=== PATIENT | female | born 1990 | race Caucasian/White ===

== ENCOUNTER 2019-12-23 15:11 | Observation (INO) ==
--- OUTSIDE RECORDS SUMMARY | 2019-12-23 15:14 | External Medical Summary | Continuity of Care Document ---
:1990 Author Name Vita Morrow, Provider Address Unavailable Unavailable , Care Team Providers Name Role Phone Efrem Morrow, [email or web address] [place] Stacey MOLINA JR Unavailable Unavailable Unavailable Unavailable Unavailable Problems Cholecystitis (575.10) (K81.9) Allergies and Adverse Reactions No Known Allergies (Allergy) Medications Omeprazole 20 MG Oral Tablet Delayed Release Refills: 0 Procedures Procedures not documented Immunizations Immunizations not documented Social History - Smoking Status Smoker. current status unknown Plan of Treatment Planned Observations Planned Goals not documented Results No Known Results Results not documented
--- OUTSIDE RECORDS SUMMARY | 2019-12-23 15:14 | External Medical Summary | Continuity of Care Document ---
:1990 Author Name Vita Morrow, Provider Address Unavailable Unavailable , Care Team Providers Name Role Phone Efrem Morrow, [email or web address] [place] Stacey MOLINA JR Unavailable Unavailable Unavailable Unavailable [...]
[2019-12-23] MEDS ORDERED: SODIUM CHLORIDE 0.9% 1000ML 1,000 ML IV ONE (15:24)
[2019-12-23] MEDS ORDERED: ACETAMINOPHEN 1,000 MG/100 ML VIAL IV STA (15:38)
[2019-12-23] MEDS ORDERED: ONDANSETRON INJ 2 MG/ML 2 ML VIAL IV STA (15:48)
--- NOTE | 2019-12-23 15:57 | Emergency Department Note ---
History of Present Illness General Chief Complaint: Abdominal Pain Stated Complaint: fever, cramping in lower r abd Source: patient Mode of arrival: ambulatory Limitations: no limitations History of Present Illness Provider Complaint: abdominal pain Onset (ago): greater than 10 hour(s) Pain Consistency: constant Location: periumbilical Radiation: RLQ Migration to: RLQ Severity: severe Maximum Pain Intensity: 10 Current Pain Intensity: 10 Quality: + cramping, + fullness and + sharp Relieved By: + nothing Exacerbated By: + movement Context: no foreign travel, no possible food poisoning, no recent antibiotic use and no history of similar episodes Associated Symptoms: + nausea, + chills and + anorexia; no vomiting, no diarrhea and no constipation Treatments prior to arrival: none This 29-year-old female patient presents the emergency department today, ambulatory, complaining of right lower quadrant abdominal pain which began at approximately 3 AM. The pain woke her from sleep. She describes the pain as sharp and cramping and has been progressively worsening throughout the day. She states it began in the middle of her abdomen and radiates to the right lower quadrant. She does report a decreased appetite. She states approximate 1 hour prior to arrival she developed a fever of 100.4 F. She has taken no medications for her symptoms. Last menstrual period began on 12/20 and is current. The patient states her last bowel movement was this morning. She does report nausea, but no vomiting. She states she has the sensation of constipation, but did move her bowels this morning. She has been unable to tolerate any foods today. Related Data Date of Last Menstrual Period: 12/20/19 Home Medications Home Medications Medication Instructions Recorded Confirmed Type No Known Home Medications 12/23/19 12/23/19 History Allergies Allergy/AdvReac Type Severity Reaction Status Date / Time No Known Allergies Allergy Verified 12/23/19 17:51 Past Med/Surg History Medical History No pertinent past medical history Surgical History Hx of cholecystectomy Social History Feels Safe at Home: Yes Smoking Status: Never smoker Review of Systems A total of 10 systems reviewed and were otherwise negative Physical Exam Vital Signs: Vital Signs - 24 hr 12/23/19 15:13 12/23/19 15:23 12/23/19 17:11 Temperature 38 C H Temperature Source Oral Pulse Rate 124 H Pulse Rate [Apical ] 101 H Respiratory Rate 18 20 Respiratory Effort / Characteristics Non-Labored Respiratory Depth Normal Blood Pressure 142/83 H Blood Pressure [Le ft Arm] 136/66 Blood Pressure Dee n 102 Blood Pressure Dee n [Left Arm] 89 Pulse Oximetry 95 98 97 Oxygen Delivery Me thod Room Air Room Air Sepsis Recent Feve r Within 48 Hours No Sepsis New/Unexpla ined Change in Men nicol Status No Sepsis Action Take n by Nursing No Action Required 12/23/19 19:08 12/23/19 20:19 Temperature Temperature Source Pulse Rate 88 Pulse Rate [Apical ] 91 H Respiratory Rate 20 18 Respiratory Effort / Characteristics Respiratory Depth Blood Pressure 144/89 H Blood Pressure [Le ft Arm] 139/78 Blood Pressure Dee n Blood Pressure Dee n [Left Arm] 98 Pulse Oximetry 98 98 Oxygen Delivery Me thod Sepsis Recent Feve r Within 48 Hours Sepsis New/Unexpla ined Change in Men nicol Status Sepsis Action Take n by Nursing Physical Exam: VITALS: Vitals are noted on the nurse's note and reviewed by myself. Patient is febrile and tachycardic. She is not hypotensive. GENERAL: This is a 29-year-old obese white female, in no acute distress, nondiaphoretic, well-developed well-nourished. SKIN: The skin was without rashes, erythema, edema, or bruising. There is no te nting of the skin. Capillary refill less than 2 seconds. HEAD: Normocephalic atraumatic. EARS: External auditory canals clear, tympanic membranes pearly khoury without erythema or effusion bilaterally. EYES: Pupils equal round and reactive to light and accommodation. Conjunctivae without injection, sclerae without icterus. NOSE: Patent, turbinates without inflammation or discharge. No sinus ten derness. MOUTH: Mucous membranes moist. Tonsils are not enlarged. Pharynx without erythema or exudate. Uvula midline. Airway patent. Tongue does not deviate. NECK: Supple without nuchal rigidity. No lymphadenopathy. HEART: Regular rate and rhythm without murmurs gallops or rubs. LUNGS: Clear to auscultation bilaterally without wheezes, rales or rhonchi. No dullness to percussion. No retractions or accessory muscle use. ABDOMEN: Positive bowel sounds x 4. Normal tympanic percussion. Diffuse tenderness without masses or organomegaly. Positive guarding and rebound tenderness. Referred tenderness with palpation of the left. + Tenderness over Mcburney's point. MUSCULOSKELETAL: No muscle atrophy, erythema, or edema noted. Full range of motion without joint tenderness in all extremities. No tenderness to palpation. Normal gait. NEURO: Patient was alert and oriented to person place and time. No focal neurological deficits. Course Course The patient was seen and evaluated as above. IV access obtained, labs drawn. Pt. offered analgesics and declined. She was medicated with IV Tylenol, NSS, and zofran. Imaging performed and reviewed by myself and radiologist as above. Labs reviewed by myself. I discussed the findings with the patient at bedside. She was given IV Morphine for pain. I discussed the case with Dr. Lester. He agreed to see and evaluate the patient. Please see his dictation regarding ongoing management and care of this patient. Administered Medications Discontinued Medications Bacitracin (Bacitracin) Confirm Administered Dose 45 appln .ROUTE .STK-MED ONE Stop: 12/23/19 19:59 Last Admin: 12/23/19 21:26 Dose: 1 appln Documented by: [id number] Bupivacaine HCl (Marcaine 0.5% Mpf) Confirm Administered Dose 30 ml .ROUTE .STK- MED ONE Stop: 12/23/19 19:59 Last Admin: 12/23/19 21:27 Dose: 9 ml Documented by: [id number] Sodium Chloride (Nss 1000ml) 1,000 mls @ 999 mls/hr IV .Q1H1M ONE Stop: 12/23/19 16:24 Last Infusion: 12/23/19 18:22 Dose: 0 mls/hr Documented by: [id number] Admin: 12/23/19 16:52 Dose: 999 mls/hr Documented by: [id number] Acetaminophen (Ofirmev) 1,000 mg in 100 mls @ 400 mls/hr IV NOW STA Stop: 12/23/19 15:52 Last Infusion: 12/23/19 17:38 Dose: 0 mls/hr Documented by: [id number] Admin: 12/23/19 16:51 Dose: 400 mls/hr Documented by: [id number] Cefoxitin Sodium (Mefoxin) 2,000 mg in 60 mls @ 100 mls/hr IV NOW STA Stop: 12/23/19 20:33 Last Admin: 12/23/19 20:58 Dose: 100 mls/hr Documented by: [id number] Ioversol (Optiray 320 100ml) 89 ml IV ONCE PRN PRN Reason: Interaction Checking Stop: 12/27/19 16:58 Last Admin: 12/23/19 17:00 Dose: 89 ml Documented by: [id number] Lidocaine HCl (Xylocaine 1% (Local)) Confirm Administered Dose 20 ml .ROUTE .Ivalua-MED ONE Stop: 12/23/19 19:59 Last Admin: 12/23/19 21:30 Dose: 9 ml Documented by: [id number] Morphine Sulfate (Morphine Sulfate) 4 mg IV NOW STA Stop: 12/23/19 17:35 Last Admin: 12/23/19 17:45 Dose: 4 mg Documented by: [id number] Ondansetron HCl (Zofran) 4 mg IV NOW STA Stop: 12/23/19 15:49 Last Admin: 12/23/19 16:51 Dose: 4 mg Documented by: [id number] Medical Decision Making Differential Diagnosis + peptic ulcer disease, + biliary pathology, + UTI, + obstruction, + mesenteric ischemia, + aortic pathology, + infections, + inflammatory bowel disease, + swati l colic, + ectopic (female), + ovarian torsion (female), + tubo- ovarian abscesses (female), + pelvic inflammatory disease (female), + abdominal pain, + appendicitis, + calculus of kidney, + constipation, + diverticulitis, + endometriosis, + gastroenteritis, + pancreatitis and + small bowel obstruction Home Medications Current Medication List: was personally reviewed by me Laboratory Data Attestation: I reviewed the patient's lab results. Leukocytosis of 18,000. No anemia or thrombocytopenia. Renal, hepatic function, and electrolytes without significant abnormality. Lactate 2.1. TSH, lipase without significant abnormalities. UA negative for infection. Hcg negative. Result diagrams: 12/23/19 15:42 12/23/19 15:42 Lab Results 12/23/19 12/23/19 12/23/19 Range/Units 15:31 15:31 15:42 WBC (4.8-10.8) K/uL RBC (4.2-5.4) M/uL Hgb (12.0-16.0) g/dL Hct (37-47) % MCV (80-100) fL MCH (25-34) pg MCHC (32-36) g/dL RDW Std Deviation (36.4-46.3) fL RDW Coeff of Guerline (11.5-14.5) % Plt Count (130-400) K/uL MPV (7.4-10.4) fL Immature Gran % (Auto) % Neut % (Auto) % Lymph % (Auto) % [place] % (Auto) % Eos % (Auto) % Baso % (Auto) % Immature Gran # (Auto) (0.00-0.02) K/uL Neut # (Auto) (1.4-6.5) K/uL Lymph # (Auto) (1.2-3.4) K/uL [place] # (Auto) (0.11-0.59) K/uL Eos # (Auto) (0-0.5) K/uL Baso # (Auto) (0-0.2) K/uL PT (9.0-12.0) Seconds INR (0.9-1.1) APTT (21.0-31.0) Seconds PTT Ratio Sodium (136-145) mmol/L Potassium (3.5-5.1) mmol/L Chloride (98-107) mmol/L Carbon Dioxide (21-32) mmol/L Anion Gap (3-11) BUN (7-18) mg/dl Creatinine (0.6-1.2) mg/dl POC Creatinine (0.6-1.3) mg/dl Est Cr Clr Drug Dosing ml/min Est GFR ( Amer) Est GFR (Non-Af Amer) BUN/Creatinine Ratio (10-20) Glucose (70-99) mg/dl Lactate 2.1 H* (0.4-2.0) mmol/L Calcium (8.5-10.1) mg/dl Total Bilirubin (0.2-1) mg/dl AST (15-37) U/L ALT (12-78) U/L Alkaline Phosphatase (45-117) U/L Total Protein (6.4-8.2) gm/dl Albumin (3.4-5.0) gm/dl Globulin (2.5-4.0) gm/dl Albumin/Globulin Ratio (0.9-2) Lipase (73-393) U/L TSH (0.300-4.500) uIu/ml Urine Color Yellow Urine Appearance Cloudy A (Clear) Urine pH 7.0 (4.5-7.5) Ur Specific [place] 1.011 (1.000-1.030) Urine Protein Negative (Negative) Urine Glucose (UA) Negative (Negative) Urine Ketones Negative (Negative) Urine Blood 3+ H (Negative) Urine Nitrite Negative (Negative) Urine Bilirubin Negative (Negative) Urine Urobilinogen Negative (Negative) Ur Leukocyte Esterase Trace H (Negative) Urine WBC (Auto) 5-10 H (0-5) /hpf Urine RBC (Auto) 5-10 H (0-4) /hpf U Hyaline Cast (Auto) 0 (0-5) /lpf U Epithel Cells (Auto) 20-30 H (0-5) /lpf Urine Bacteria (Auto) Negative (Negative) POC Ur Test NEG (NEG) 12/23/19 12/23/19 12/23/19 Range/Units 15:42 15:42 15:42 WBC 18.41 H (4.8-10.8) K/uL RBC 4.36 (4.2-5.4) M/uL Hgb 13.0 (12.0-16.0) g/dL Hct 36.7 L (37-47) % MCV 84.2 (80-100) fL MCH 29.8 (25-34) pg MCHC 35.4 (32-36) g/dL RDW Std Deviation 39.2 (36.4-46.3) fL RDW Coeff of Guerline 12.9 (11.5-14.5) % Plt Count 303 (130-400) K/uL MPV 8.9 (7.4-10.4) fL Immature Gran % (Auto) 0.3 % Neut % (Auto) 82.2 % Lymph % (Auto) 8.1 % Sibley % (Auto) 9.1 % Eos % (Auto) 0.1 % Baso % (Auto) 0.2 % Immature Gran # (Auto) 0.06 H (0.00-0.02) K/uL Neut # (Auto) 15.12 H (1.4-6.5) K/uL Lymph # (Auto) 1.50 (1.2-3.4) K/uL [place]y # (Auto) 1.67 H (0.11-0.59) K/uL Eos # (Auto) 0.02 (0-0.5) K/uL Baso # (Auto) 0.04 (0-0.2) K/uL PT 10.3 (9.0-12.0) Seconds INR 1.0 (0.9-1.1) APTT 25.8 (21.0-31.0) Seconds PTT Ratio 1.0 Sodium 134 L (136-145) mmol/L Potassium 3.4 L (3.5-5.1) mmol/L Chloride 101 (98-107) mmol/L Carbon Dioxide 24 (21-32) mmol/L Anion Gap 10.0 (3-11) BUN 10 (7-18) mg/dl Creatinine 0.80 (0.6-1.2) mg/dl POC Creatinine (0.6-1.3) mg/dl Est Cr Clr Drug Dosing 120.7 ml/min Est GFR ( Amer) 116.3 Est GFR (Non-Af Amer) 100.3 BUN/Creatinine Ratio 12.1 (10-20) Glucose 101 H (70-99) mg/dl Lactate (0.4-2.0) mmol/L Calcium 9.2 (8.5-10.1) mg/dl Total Bilirubin 0.6 (0.2-1) mg/dl AST 18 (15-37) U/L ALT 44 (12-78) U/L Alkaline Phosphatase 85 (45-117) U/L Total Protein 8.3 H (6.4-8.2) gm/dl Albumin 4.1 (3.4-5.0) gm/dl Globulin 4.2 H (2.5-4.0) gm/dl Albumin/Globulin Ratio 1.0 (0.9-2) Lipase 49 L (73-393) U/L TSH 1.250 (0.300-4.500) uIu/ml Urine Color Urine Appearance (Clear) Urine pH (4.5-7.5) Ur Specific [place] (1.000-1.030) Urine Protein (Negative) Urine Glucose (UA) (Negative) Urine Ketones (Negative) Urine Blood (Negative) Urine Nitrite (Negative) Urine Bilirubin (Negative) Urine Urobilinogen (Negative) Ur Leukocyte Esterase (Negative) Urine WBC (Auto) (0-5) /hpf Urine RBC (Auto) (0-4) /hpf U Hyaline Cast (Auto) (0-5) /lpf U Epithel Cells (Auto) (0-5) /lpf Urine Bacteria (Auto) (Negative) POC Ur Test (NEG) 12/23/19 12/23/19 Range/Units 15:47 17:43 WBC (4.8-10.8) K/uL RBC (4.2-5.4) M/uL Hgb (12.0-16.0) g/dL Hct (37-47) % MCV (80-100) fL MCH (25-34) pg MCHC (32-36) g/dL RDW Std Deviation (36.4-46.3) fL RDW Coeff of Guerline (11.5-14.5) % Plt Count (130-400) K/uL MPV (7.4-10.4) fL Immature Gran % (Auto) % Neut % (Auto) % Lymph % (Auto) % [place] % (Auto) % Eos % (Auto) % Baso % (Auto) % Immature Gran # (Auto) (0.00-0.02) K/uL Neut # (Auto) (1.4-6.5) K/uL Lymph # (Auto) (1.2-3.4) K/uL [place] # (Auto) (0.11-0.59) K/uL Eos # (Auto) (0-0.5) K/uL Baso # (Auto) (0-0.2) K/uL PT (9.0-12.0) Seconds INR (0.9-1.1) APTT (21.0-31.0) Seconds PTT Ratio Sodium (136-145) mmol/L Potassium (3.5-5.1) mmol/L Chloride (98-107) mmol/L Carbon Dioxide (21-32) mmol/L Anion Gap (3-11) BUN (7-18) mg/dl Creatinine (0.6-1.2) mg/dl POC Creatinine 0.6 (0.6-1.3) mg/dl Est Cr Clr Drug Dosing ml/min Est GFR ( Amer) Est GFR (Non-Af Amer) BUN/Creatinine Ratio (10-20) Glucose (70-99) mg/dl Lactate 1.3 (0.4-2.0) mmol/L Calcium (8.5-10.1) mg/dl Total Bilirubin (0.2-1) mg/dl AST (15-37) U/L ALT (12-78) U/L Alkaline Phosphatase (45-117) U/L Total Protein (6.4-8.2) gm/dl Albumin (3.4-5.0) gm/dl Globulin (2.5-4.0) gm/dl Albumin/Globulin Ratio (0.9-2) Lipase (73-393) U/L TSH (0.300-4.500) uIu/ml Urine Color Urine Appearance (Clear) Urine pH (4.5-7.5) Ur Specific [place] (1.000-1.030) Urine Protein (Negative) Urine Glucose (UA) (Negative) Urine Ketones (Negative) Urine Blood (Negative) Urine Nitrite (Negative) Urine Bilirubin (Negative) Urine Urobilinogen (Negative) Ur Leukocyte Esterase (Negative) Urine WBC (Auto) (0-5) /hpf Urine RBC (Auto) (0-4) /hpf U Hyaline Cast (Auto) (0-5) /lpf U Epithel Cells (Auto) (0-5) /lpf Urine Bacteria (Auto) (Negative) POC Ur Test (NEG) Imaging Data Radiologist's Impression: ABDOMEN AND PELVIS CT WITH IV CONTRAST CT DOSE: 866.30 mGy.cm HISTORY: Right lower quadrant pain and fever. TECHNIQUE: Multiaxial CT images of the abdomen and pelvis were performed following the use of intravenous contrast. A dose lowering technique was util ized adhering to the principles of ALARA. COMPARISON STUDY: None. FINDINGS: There is a dilated appendix measuring up to 11 mm in diameter with mild periappendiceal fat stranding. This contains a few appendicoliths. This is consistent with acute appendicitis. No perforation or abscess identified at this time. The lung bases are clear. No pneumoperitoneum. No pneumatosis. No fractures within the visualized osseous structures. Hepatic steatosis. Cholecystectomy. The spleen, pancreas, kidneys, and adrenal glands are unremarkable. No retroperitoneal lymphadenopathy. Tiny fat-containing umbilical hernia. The bladder, uterus, bilateral adnexa are unremarkable. Trace pelvic free fluid. No evidence for bowel obstruction. IMPRESSION: Acute appendicitis. ACT 112: Negative or not required by law. Electronically signed by: Duane Mackey M.D. 12/23/2019 5:23 PM Blood Pressure Blood Pressure Findings: Elevated blood pressure Blood Pressure Disposition: elevated BP felt to be situational MDM Narrative This 29-year-old female patient presents emergency department today, ambulatory, due to abdominal pain and fever. Patient is diffusely tender, but most tender over McBurney's point in the right lower quadrant. Concern primarily for acute appendicitis. Labs showed a leukocytosis of 18,000. Lactate 2.1. CT consistent with acute appendicitis. I did consult with the general surgeon on- call. He did agree to see and evaluate the patient. The patient was taken to the OR for t definitive management. Please see surgeon dictation regarding final disposition. The chart was completed utilizing freee Speech voice recognition software. Grammatical errors, random word insertions, pronoun errors, and incomplete sentences are an occasional consequence of this system due to software limitations, ambient noise, and hardware issues. Any formal questions or lesia rns about the content, text, or information contained within the body of this dictation should be directly addressed to the provider for clarification. Impression & Plan Acute appendicitis, Abdominal pain, Nausea & vomiting Discharge Plan Visit Data *Final* Discharge Date/Time: 12/23/19 20:19 Chief Complaint: Abdominal Pain Stated Complaint: fever, cramping in lower r abd ED Provider: Bucky Banda ED Midlevel Provider: Carmen Matson Discharge Problem: Acute appendicitis, Abdominal pain, Nausea & vomiting Patient Disposition: Still a Patient Condition: Good Discharge Instructions Interventions: ED Discharge Assessment Last Done: 12/23/19 20:19
[2019-12-23 16:04] LABS: Basophils # (auto) 0.04 K/uL (0-0.2); Basophils % (auto) 0.2 %; Eosinophils # (auto) 0.02 K/uL (0-0.5); Eosinophils % (auto) 0.1 %; Hematocrit (blood only) 36.7 % (37-47); Immature Granulocytes # (auto) 0.06 K/uL (0.00-0.02); Immature Granulocytes % (auto) 0.3 %; Lymphocytes % (auto) 8.1 %; Mean Corpuscular Hemoglobin 29.8 pg (25-34); Mean Corpuscular Hgb Conc 35.4 g/dL (32-36); Mean Corpuscular Volume 84.2 fL (80-100); Mean Platelet Volume 8.9 fL (7.4-10.4); Monocytes # (auto) 1.67 K/uL (0.11-0.59); Monocytes % (auto) 9.1 %; Neutrophils # (auto) 15.12 K/uL (1.4-6.5); Neutrophils % (auto) 82.2 %; Platelet Count 303 K/uL (130-400); RDW Coefficient of Variation 12.9 % (11.5-14.5); RDW Standard Deviation 39.2 fL (36.4-46.3); Red Blood Count 4.36 M/uL (4.2-5.4); White Blood Count 18.41 K/uL (4.8-10.8)
[2019-12-23 16:05] LABS: Appearance Urine Cloudy (Clear); Bacteria Urine Automated Negative (Negative); Bilirubin Urine Negative (Negative); Blood Urine 3+ (Negative); Cast Urine Automated 0 /lpf (0-5); Color Urine Yellow; Epithelial Cell Urine Auto 20-30 /lpf (0-5); Glucose Urine UA Negative (Negative); Ketones Urine Negative (Negative); Leukocyte Esterase Urine Trace (Negative); Nitrite Urine Negative (Negative); Protein Urine Negative (Negative); Specific Gravity Urine 1.011 (1.000-1.030); Urobilinogen Urine Negative (Negative)
[2019-12-23 16:13] LABS: Partial Thromboplastin Time 25.8 Seconds (21.0-31.0); Prothrombin Time 10.3 Seconds (9.0-12.0)
[2019-12-23 16:24] LABS: Albumin Level 4.1 gm/dl (3.4-5.0); BUN Creatinine Ratio 12.1 (10-20); Calcium 9.2 mg/dl (8.5-10.1); Creatinine Clr Calc Pharmacy 120.7 ml/min; Est GFR (African American) 116.3; Est GFR (Non-African American) 100.3; Potassium 3.4 mmol/L (3.5-5.1)
[2019-12-23 16:35] LABS: Bilirubin,Total 0.6 mg/dl (0.2-1); Globulin 4.2 gm/dl (2.5-4.0); Thyroid Stimulating Hormone 1.25 uIu/ml (0.300-4.500); Total Protein 8.3 gm/dl (6.4-8.2)
[2019-12-23] MEDS ORDERED: IOVERSOL 100ml IV PRN (16:59)
--- NOTE | 2019-12-23 17:24 | CT Scan Report ---
ABDOMEN AND PELVIS CT WITH IV CONTRAST CT DOSE: 866.30 mGy.cm HISTORY: Right lower quadrant pain and fever. TECHNIQUE: Multiaxial CT images of the abdomen and pelvis were performed following the use of intrave nous contrast. A dose lowering technique was utilized adhering to the principles of ALARA. COMPARISON STUDY: None. FINDINGS: There is a dilated appendix measuring up to 11 mm in diameter with mild periappendiceal fat stranding. This contains a few appendicoliths. This is consistent with acute appendicitis. No perfor ation or abscess identified at this time. The lung bases are clear. No pneumoperitoneum. No pneumatos is. No fractures within the visualized osseous structures. Hepatic steatosis. Cholecystectomy. The sp sohail, pancreas, kidneys, and adrenal glands are unremarkable. No retroperitoneal lymphadenopathy. Tin y fat-containing umbilical hernia. The bladder, uterus, bilateral adnexa are unremarkable. Trace pelv ic free fluid. No evidence for bowel obstruction. IMPRESSION: Acute appendicitis. ACT 112: Negative or not required by law. Electronically signed by: Duane Mackey M.D. 12/23/2019 5:23 PM
[2019-12-23] MEDS ORDERED: MoRPHine SULFATE 4 MG/ML 1 ML CARP\\VIAL IV STA (17:34)
--- NOTE | 2019-12-23 19:54 | Surgery Consultation ---
Date of Consultation December 23, 2019 Assessment & Plan (1) Acute appendicitis: pt is a 29 year-old female who presents to ER with one day history RLQ pain, IMP: acute appendicitis, Plan, I recommend to do laparoscopic appendectomy, possible open, D/W benefits, risks and alternatives of the surgery, the risks - infection, bleeding, abscess, pt understood, she agrees with the surgery, she signed consent, I answered all questions, cefoxitin 2gm iv now, History of Present Illness History of Present Illness History of Present Illness General Chief Complaint: Abdominal Pain Stated Complaint: fever, cramping in lower r abd Source: patient Mode of arrival: ambulatory Limitations: no limitations History of Present Illness Provider Complaint: abdominal pain Onset (ago): greater than 10 hour(s) Pain Consistency: constant Location: periumbilical Radiation: RLQ Migration to: RLQ Severity: severe Maximum Pain Intensity: 10 Current Pain Intensity: 10 Quality: + cramping, + fullness and + sharp Relieved By: + nothing Exacerbated By: + movement Context: no foreign travel, no possible food poisoning, no recent antibiotic use and no history of similar episodes Associated Symptoms: + nausea, + chills and + anorexia; no vomiting, no diarrhea and no constipation Treatments prior to arrival: none This 29-year-old female patient presents the emergency department today, ambulatory, complaining of right lower quadrant abdominal pain which began at approximately 3 AM. The pain woke her from sleep. She describes the pain as sharp and cramping and has been progressively worsening throughout the day. She states it began in the middle of her abdomen and radiates to the right lower quadrant. She does report a decreased appetite. She states approximate 1 hour prior to arrival she developed a fever of 100.4 F. She has taken no medications for her symptoms. Last menstrual period began on 12/20 and is current. The patient states her last bowel movement was this morning. She does report nausea, but no vomiting. She states she has the sensation of constipation, but did move her bowels this morning. She has been unable to tolerate any foods today. Related Data Date of Last Menstrual Period: 12/20/19 I ( Georgette Lester MD ) got a call for consult acute appendicitis, I reviewed pt's H/P , labs, CT Scan with pt, I agree with above statement. Allergies Allergy/AdvReac Type Severity Reaction Status Date / Time No Known Allergies Allergy Verified 12/23/19 17:51 Home Medications Home Medications Medication Instructions Recorded Confirmed Type No Known Home Medications 12/23/19 12/23/19 History Patient History Medical History (Updated 12/23/19 @ 19:55 by Georgette Lester MD) No pertinent past medical history Surgical History (Updated 12/23/19 @ 15:55 by Carmen Matson PA-C) Hx of cholecystectomy Social History Feels Safe at Home: Yes Smoking Status: Never smoker Review of Systems Review of Systems: All systems reviewed & are unremarkable except as noted in HPI & below Constitutional: as per Subjective / HPI Ear, Nose, Mouth, Throat: as per Subjective / HPI Respiratory: as per Subjective / HPI Cardiovascular: as per Subjective / HPI Gastrointestinal: as per Subjective / HPI Genitourinary: as per Subjective / HPI Musculoskeletal: as per Subjective / HPI Integumentary: as per Subjective / HPI Neurologic: as per Subjective / HPI Psychiatric: as per Subjective / HPI Endocrine: as per Subjective / HPI Hematologic / Lymphatic: as per Subjective / HPI Allergy / Immunological: as per Subjective / HPI Physical Exam Constitutional: WD/WN, vitals as above well developed and well nourished ENMT: external ear and nose normal, oropharynx normal Neck: trachea midline, no thyromegaly Respiratory: normal respiratory effort, lungs clear to auscultation Cardiovascular: RRR, no murmur, no edema Rate/Rhythm: regular rate and regular rhythm Heart Sounds: normal S1 and normal S2 Gastrointestinal (Abdomen): normal bowel sounds, soft, nontender, no hepatosplenomegaly Percussion/Palpation: + abdomen tender, + guarding and abdomen soft tenderness at RLQ, with rebound pain, BS + Musculoskeletal: no cyanosis or clubbing, extremities motor strength 5/5 Skin: no rashes, warm and dry Neurologic: patellar DTR's 2+ bilat, sensation intact Psychiatric: Orientation: alert and oriented x 3 Results & Data Vital Signs (Past 12 Hours) Vital Signs Temp Pulse Pulse Resp BP BP Pulse Ox 12/23/19 19:08 91 H 20 139/78 98 12/23/19 17:11 101 H 20 136/66 97 12/23/19 15:23 98 12/23/19 15:13 38 C H 124 H 18 142/83 H 95 Laboratory Results Abnormal lab results 12/23/19 12/23/19 12/23/19 Range/Units 15:31 15:42 15:42 WBC 18.41 H (4.8-10.8) K/uL Hct 36.7 L (37-47) % Immature Gran # (Auto) 0.06 H (0.00-0.02) K/uL Neut # (Auto) 15.12 H (1.4-6.5) K/uL [place] # (Auto) 1.67 H (0.11-0.59) K/uL Sodium (136-145) mmol/L Potassium (3.5-5.1) mmol/L Glucose (70-99) mg/dl Lactate 2.1 H* (0.4-2.0) mmol/L Total Protein (6.4-8.2) gm/dl Globulin (2.5-4.0) gm/dl Lipase (73-393) U/L Urine Appearance Cloudy A (Clear) Urine Blood 3+ H (Negative) Ur Leukocyte Esterase Trace H (Negative) Urine WBC (Auto) 5-10 H (0-5) /hpf Urine RBC (Auto) 5-10 H (0-4) /hpf U Epithel Cells (Auto) 20-30 H (0-5) /lpf 12/23/19 Range/Units 15:42 WBC (4.8-10.8) K/uL Hct (37-47) % Immature Gran # (Auto) (0.00-0.02) K/uL Neut # (Auto) (1.4-6.5) K/uL [place] # (Auto) (0.11-0.59) K/uL Sodium 134 L (136-145) mmol/L Potassium 3.4 L (3.5-5.1) mmol/L Glucose 101 H (70-99) mg/dl Lactate (0.4-2.0) mmol/L Total Protein 8.3 H (6.4-8.2) gm/dl Globulin 4.2 H (2.5-4.0) gm/dl Lipase 49 L (73-393) U/L Urine Appearance (Clear) Urine Blood (Negative) Ur Leukocyte Esterase (Negative) Urine WBC (Auto) (0-5) /hpf Urine RBC (Auto) (0-4) /hpf U Epithel Cells (Auto) (0-5) /lpf Diagnostic Findings ABDOMEN AND PELVIS CT WITH IV CONTRAST CT DOSE: 866.30 mGy.cm HISTORY: Right lower quadrant pain and fever. TECHNIQUE: Multiaxial CT images of the abdomen and pelvis were performed following the use of intravenous contrast. A dose lowering technique was utilized adhering to the principles of ALARA. COMPARISON STUDY: None. FINDINGS: There is a dilated appendix measuring up to 11 mm in diameter with mild periappendiceal fat stranding. This contains a few appendicoliths. This is consistent with acute appendicitis. No perforation or abscess identified at this time. The lung bases are clear. No pneumoperitoneum. No pneumatosis. No frac tures within the visualized osseous structures. Hepatic steatosis. Cholecystectomy. The spleen, pancreas, kidneys, and adrenal glands are unremarkable. No retroperitoneal lymphadenopathy. Tiny fat-containing umbilical hernia. The bladder, uterus, bilateral adnexa are unremarkable. Trace pelvic free fluid. No evidence for bowel obstruction. IMPRESSION: Acute appendicitis.
[2019-12-23] MEDS ORDERED: BUPIVACAINE 0.5 % 5 MG/1 ML MPF 30ML VIAL ONE (19:58)
[2019-12-23] MEDS ORDERED: LIDOCAINE HCL 1% 20 ML VIAL ONE (19:58)
[2019-12-23] MEDS ORDERED: BACITRACIN OINT 15 GM TUBE ONE (19:58)
[2019-12-23] MEDS ORDERED: cefOXitin 2,000 MG/60 ML BAG IV STA (19:58)
--- NOTE | 2019-12-23 19:59 | History & Physical Bridge Note ---
Date of Service December 23, 2019 History & Physical Bridge Note I have examined the patient, reviewed the History & Physical and in the interval since the performance of the History & Physical I have noted the following changes of clinical significance: no changes noted
--- NOTE | 2019-12-23 20:36 | Anesthesiology Consultation ---
Date of Service December 23, 2019 Assessment & Plan (1) Encounter for pre-operative examination: Chart Review Chart Review: Acceptable Risk for Surgery and Patient NOT seen in Pre Admission Testing Consults Requested none ASA [id number] Proposed Anesthesia Anesthesia Type: General Risk / Benefits Reviewed With: PT / POA / Parent / Guardian, Accepts Plan and Informed Consent Obtained History Surgery Operation Date: 12/23/19 20:00 Proposed Procedures p Laparoscopic Appendectomy - Georgette Lester MD Height/Weight Height: 5 ft 5 in Weight: 97 kg Allergies Allergy/AdvReac Type Severity Reaction Status Date / Time No Known Allergies Allergy Verified 12/23/19 17:51 Medications Home Medications Medication Instructions Recorded Confirmed Last Taken No Known Home Medications 12/23/19 12/23/19 Unknown Active Medications Generic Name Dose Route Start Last Admin Trade Name Freq PRN Reason Stop Dose Admin Ioversol 89 ml 12/23/19 16:59 12/23/19 17:00 Optiray 320 100ml IV 12/27/19 16:58 89 ml ONCE PRN Administration Interaction Checking NPO Date Last Intake of Fluids: 12/23/19 Time Last Intake of Fluids: 15:00 Date Last Intake of Solids: 12/22/19 Time Last Intake of Solids: 20:30 Past Medical History Medical History No pertinent past medical history Exercise / Class Metabolic Activity II 4-5 Yardwork/Stairs/Walk up hill Past Surgical History Surgical History Hx of cholecystectomy Past Anesthesia History No Hx of Anesthesia Complications and No Family Hx of Anesthesia Complications History of PONV No Hx of PONV and No Hx of Motion Sickness Social History Smoking Status: Never smoker Physical Exam Vital Signs Last Vital Signs Temp 38 C H 12/23/19 15:13 Pulse 88 12/23/19 20:19 Resp 18 12/23/19 20:19 BP 144/89 H 12/23/19 20:19 Pulse Ox 98 12/23/19 20:19 ENMT Mouth: no dentition abnormality Thyromental Distance: > or= 3.5 Finger Breadths Mallampati Class: II Neck normal visual inspection Respiratory normal respiratory effort Auscultation: lungs clear to auscultation bilaterally Cardiovascular Rate/Rhythm: regular rate and regular rhythm Psychiatric Orientation: alert Testing Laboratory Results 12/23/19 15:42 12/23/19 15: PT 10.3 Seconds (9.0-12.0) 12/23/19 15:42 INR 1.0 (0.9-1.1) 12/23/19 15: APTT 25.8 Seconds (21.0-31.0) 12/23/19 15:42 Urine Color Yellow 12/23/19 15: Urine Appearance Cloudy (Clear) A 12/23/19 15: Urine pH 7.0 (4.5-7.5) 12/23/19 15: Ur Specific [place] 1.011 (1.000-1.030) 12/23/19 15: Urine Protein Negative (Negative) 12/23/19 15: Urine Glucose (UA) Negative (Negative) 12/23/19 15: Urine Ketones Negative (Negative) 12/23/19 15:31 Urine Nitrite Negative (Negative) 12/23/19 15:31 Ur Leukocyte Esterase Trace (Negative) H 12/23/19 15:31 Urine WBC (Auto) 5-10 /hpf (0-5) H 12/23/19 15:31 Urine RBC (Auto) 5-10 /hpf (0-4) H 12/23/19 15:31 U Hyaline Cast (Auto) 0 /lpf (0-5) 12/23/19 15:31 U Epithel Cells (Auto) 20-30 /lpf (0-5) H 12/23/19 15:31 Urine Bacteria (Auto) Negative (Negative) 12/23/19 15:31 12/23/19 15:31 POC Ur Test NEG
[2019-12-23] MEDS ORDERED: DEXAMETHASONE SOD INJ 4 MG/ML VIAL ONE (21:08)
[2019-12-23] MEDS ORDERED: SUCCINYLCHOLINE 100MG/5ML SYR ONE (21:08)
[2019-12-23] MEDS ORDERED: KETOROLAC 30 MG/ML VIAL ONE (21:08)
[2019-12-23] MEDS ORDERED: PROPOFOL IV EMULSION 10 MG/ML 20 ML VIAL IV ONE (21:08)
[2019-12-23] MEDS ORDERED: ONDANSETRON INJ 2 MG/ML 2 ML VIAL ONE (21:08)
[2019-12-23] MEDS ORDERED: LIDOCAINE HCL 2% 2 ML VIAL/AMP(20MG/ML) INFIL ONE (21:08)
[2019-12-23] MEDS ORDERED: fentaNYL citrate 100 MCG/2 ML VIAL ONE (21:08)
[2019-12-23] MEDS ORDERED: MoRPHine SULFATE PF 1 MG/ML 10 ML AMP/VIAL ONE (21:09)
--- NOTE | 2019-12-23 21:38 | Post Operative Brief Note ---
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
[2019-12-23] MEDS ORDERED: ONDANSETRON INJ 2 MG/ML 2 ML VIAL IV PRN ×2 (21:50→22:05)
[2019-12-23] MEDS ORDERED: HYDROmorphone INJ 0.5 MG/0.5 ML SYR IV PRN (21:59)
[2019-12-23] MEDS ORDERED: ATROPINE SULFATE 0.1 MG/ML 10ML SYR IV PRN (22:05)
[2019-12-23] MEDS ORDERED: HYDROmorphone INJ 2 MG/ML SYR/VIAL IV PRN (22:05)
[2019-12-23] MEDS ORDERED: fentaNYL citrate 100 MCG/2 ML VIAL IV PRN (22:05)
[2019-12-23] MEDS ORDERED: ePHEDrine sulfate 50 MG/ML AMP IV PRN (22:05)
[2019-12-23] MEDS ORDERED: DiphenhydrAMINE HCL 50 MG/ML VIAL ONE (22:11)
--- NOTE | 2019-12-23 22:42 | Anesthesiology Progress Note ---
Date of Service December 23, 2019 Anesthesia Post Procedure Vital Signs Vital Signs: Temp Pulse Pulse Resp BP BP Pulse Ox 12/23/19 22:25 80 14 120/77 98 12/23/19 22:15 36.8 C 86 16 124/86 99 12/23/19 22:05 98 H 15 132/92 97 12/23/19 21:55 104 H 17 121/77 97 12/23/19 21:45 36.9 C 105 H 20 150/80 H 97 12/23/19 20:19 88 18 144/89 H 98 12/23/19 19:08 91 H 20 139/78 98 12/23/19 17:11 101 H 20 136/66 97 12/23/19 15:23 98 12/23/19 15:13 38 C H 124 H 18 142/83 H 95 Pain Intensity Abdomen: Pain Intensity: 1 Transfer of Care Handoff Completed per policy Notes Mental Status: alert / awake / arousable Patient Amnestic to Procedure: Yes Nausea / Vomiting: adequately controlled Pain: adequately controlled Airway Patency, RR, SpO2: stable & adequate BP & HR: stable & adequate Hydration State: stable & adequate Anesthetic Complications: no major complications apparent Notes: Patient had some hives on her lower R forearm in pacu. she had no respiratory or hemodynamic signs of a systemic allergic reaction. this responded nicely to low dose IV diphenhydramine and switching the infusion to an alternate existing IV site. I suspect it was either a mild hypersensitivity reaction to one of the many anesthetic medications or simply vascular irritation from the infusion itself. It appears to be self limited and can be observed.
[2019-12-23] MEDS: LACTATED RINGER'S 1,000 ML IV SCH (23:10)
[2019-12-24] MEDS: OXYCODONE/ACETAMINOPHEN 5mg/325mg TAB PO PRN ×4 (00:31→12:54)
--- NOTE | 2019-12-24 02:47 | Operative Report ---
DATE OF OPERATION: 12/23/2019 PREOPERATIVE DIAGNOSIS: Acute appendicitis. POSTOPERATIVE DIAGNOSES: Acute appendicitis with gangrene appendix. OPERATION: Laparoscopic appendectomy. SURGEON: Georgette Lester MD. ANESTHESIA: General. ESTIMATED BLOOD LOSS: About 5 mL. FINDINGS: Acute appendicitis with gangrene appendix. COMPLICATIONS: None. INDICATIONS FOR THE PROCEDURE: This is a 29-year-old female who presented to the ED with 1 day history of right lower quadrant pain. The patient had a CT scan diagnosis of acute appendicitis. I recommended to do laparoscopic appendectomy, possible open. I did talk to the patient about the benefit and risk, alternate procedure. I indicated the risks may include but not limited such as bleeding, infection, abscess, injury to bowel. The patient understands. She signed informed consent and I answered all questions. DETAILS OF PROCEDURE: We brought the patient to the OR, put the patient in the supine position. The patient received SCD on bilateral legs to prevent DVT. Also, the patient received 2 g cefoxitin IV for prophylactic antibiotic. The patient received general anesthesia without difficulty. The abdomen was prepped and draped in routine sterile fashion. After timeout, I injected local anesthesia by using 1% lidocaine mixed with 0.5% Marcaine just above umbilicus. Then I made a small incision just above umbilicus, opened fascia, opened peritoneum under direct vision, put a Javier trocar in, connected to CO2 to create pneumoperitoneum. Flow rate is 6 liter per minute. Pressure not more than 14 mmHg. Once we got a nice pneumoperitoneum, we put a camera in, looked around the abdomen, shows normal finding on the small bowel, large bowel; however, the appendix shows significant inflammation and large size about 11 mm diameter and also shows gangrene appendix. There are some pus flow around the appendix, confirmed diagnosis of acute appendicitis. Then, we put another two 5 mm trocar on the left lower quadrant area and we mobilized appendix. We used the harmonic to take down the appendiceal, rechecked, no active bleeding. Then I used a 45 mm Endo-BEVERLY staple for transection on the base of the appendix, rechecked the staple line intact and no leak, no active bleeding. Then we removed the appendix through the catch bag, then we reinserted Javier trocar in, connected to CO2 to create pneumoperitoneum. Again looked around the staple line, it is intact. No active bleeding, no leak. Then we suctioned all the flow with some saline flush and then we removed all trocar under direct vision. No active bleeding from the trocar sites. Pneumoperitoneum was released. Then, I closed the umbilical incision and fascial layer by using #1 Vicryl [id number] x2, closed subcutaneous layer by using 2-0 Vicryl interrupted, closed skin layer by using 4-0 Vicryl continuous running, closed another two 5 mm trocar site of the skin only by using 4-0 Vicryl. Then we put the dressing on. The patient tolerated the procedure well. All instrument, needle and sponge count correct x2 at the end of the case. The patient transferred to recovery room in stable condition. Specimen sent to pathology. After procedure, I did talk to the patient and the patient's family member about the OR finding and procedure we did. They understand. I attest to the content of the Intraoperative Record and any orders documented therein. Any exception s are noted below.
[2019-12-24 05:42] LABS: Basophils # (auto) 0.01 K/uL (0-0.2); Basophils % (auto) 0.1 %; Hemoglobin 11.7 g/dL (12.0-16.0); Immature Granulocytes # (auto) 0.05 K/uL (0.00-0.02); Immature Granulocytes % (auto) 0.4 %; Lymphocytes # (auto) 1.28 K/uL (1.2-3.4); Mean Corpuscular Hemoglobin 29.4 pg (25-34); Mean Corpuscular Hgb Conc 33.4 g/dL (32-36); Mean Corpuscular Volume 87.9 fL (80-100); Mean Platelet Volume 9.2 fL (7.4-10.4); Monocytes # (auto) 0.83 K/uL (0.11-0.59); Monocytes % (auto) 5.8 %; Neutrophils # (auto) 12.08 K/uL (1.4-6.5); Neutrophils % (auto) 84.7 %; Platelet Count 243 K/uL (130-400); RDW Coefficient of Variation 13.1 % (11.5-14.5); RDW Standard Deviation 42.4 fL (36.4-46.3); Red Blood Count 3.98 M/uL (4.2-5.4); White Blood Count 14.25 K/uL (4.8-10.8)
[2019-12-24 06:20] LABS: Albumin Level 3.3 gm/dl (3.4-5.0); BUN Creatinine Ratio 14.8 (10-20); Calcium 8.7 mg/dl (8.5-10.1); Creatinine Clr Calc Pharmacy 135.9 ml/min; Est GFR (African American) 134.3; Est GFR (Non-African American) 115.9
[2019-12-24 06:23] LABS: Albumin Globulin Ratio 0.8 (0.9-2); Bilirubin,Total 0.8 mg/dl (0.2-1); Globulin 3.9 gm/dl (2.5-4.0); Total Protein 7.2 gm/dl (6.4-8.2)
[2019-12-24] MEDS ORDERED: ACETAMINOPHEN 325 MG TAB PO PRN (08:18)
[2019-12-24] MEDS ORDERED: IBUPROFEN 600 MG TAB PO PRN (08:18)
--- NOTE | 2019-12-24 08:26 | Anesthesiology Progress Note ---
Date of Service December 24, 2019 Anesthesia Post Procedure Vital Signs Vital Signs: Temp Pulse Pulse Pulse Resp BP BP 12/24/19 07:38 36.8 C 56 L 16 105/57 L 12/24/19 01:16 36.8 C 97 H 16 100/67 12/24/19 00:10 36.9 C 95 H 16 109/66 12/23/19 23:40 37.0 C 73 16 106/65 12/23/19 23:10 37 C 73 16 106/65 12/23/19 22:45 36.8 C 73 16 113/78 12/23/19 22:35 36.8 C 76 14 122/71 12/23/19 22:25 80 14 120/77 12/23/19 22:15 36.8 C 86 16 124/86 12/23/19 22:05 98 H 15 132/92 12/23/19 21:55 104 H 17 121/77 12/23/19 21:45 36.9 C 105 H 20 150/80 H 12/23/19 20:19 88 18 144/89 H 12/23/19 19:08 91 H 20 139/78 12/23/19 17:11 101 H 20 136/66 12/23/19 15:23 12/23/19 15:13 38 C H 124 H 18 142/83 H Pulse Ox 12/24/19 07:38 96 12/24/19 01:16 97 12/24/19 00:10 95 12/23/19 23:40 93 12/23/19 23:10 93 12/23/19 22:45 99 12/23/19 22:35 99 12/23/19 22:25 98 12/23/19 22:15 99 12/23/19 22:05 97 12/23/19 21:55 97 12/23/19 21:45 97 12/23/19 20:19 98 12/23/19 19:08 98 12/23/19 17:11 97 12/23/19 15:23 98 12/23/19 15:13 95 Pain Intensity Abdomen: Pain Intensity: 3 Notes Mental Status: alert / awake / arousable and participated in evaluation Patient Amnestic to Procedure: Yes Nausea / Vomiting: see Notes below Pain: adequately controlled Airway Patency, RR, SpO2: stable & adequate BP & HR: stable & adequate Hydration State: stable & adequate Anesthetic Complications: no major complications apparent and Pt Satisfied with anesthetic care
[2019-12-24] MEDS: LACTATED RINGER'S 1,000 ML IV SCH (11:54)
--- NOTE | 2019-12-24 13:52 | Surgery Progress Note ---
Date of Service December 24, 2019 Assessment & Plan (1) Acute appendicitis: POD # 1 s/p laparoscopic appendectomy for gangrenous appendicitis - no indigo perforation -vitals stable, afebrile - preop op resolved, postop pain controlled - no n/v Plan: Diet advanced for lunch, if does well can discharge home this afternoon continue IV abx up until discharge d/c iv fluids Patient evaluated at 1:30 pm. Tolerated full liquids for lunch, no n/v pain controlled ready to go home discharge instructions reviewed Rx for Percocet prn pain and Cipro x 5 days sent to pharmacy f/u surgical office in [address] Lester has seen patient , agrees with above Subjective feeling good this morning pain controlled with Percocet no n/v tolerated liquids for breakfast and full liquids ordered for lunch ambulated hallway Physical Exam Constitutional: WD/WN, vitals as above no acute distress Respiratory: normal respiratory effort; no respiratory distress Gastrointestinal (Abdomen): Inspection/Auscultation: abdomen normal to inspection; abdomen not distended Percussion/Palpation: + abdomen tender (at incision sites only) and abdomen soft; no guarding and abdomen not rigid Skin: no rashes, warm and dry + incision (covered with dressings clean and dry) Psychiatric: A+Ox3, euthymic affect Results & Data Vital Signs (Past 12 Hours) Vital Signs Temp Pulse Resp BP Pulse Ox 12/24/19 12:32 36.6 C 55 L 16 103/64 96 12/24/19 07:38 36.8 C 56 L 16 105/57 L 96 Laboratory Results 12/24/19 12/24/19 12/23/19 Range/Units 05:27 05:27 17:43 WBC 14.25 H (4.8-10.8) K/uL RBC 3.98 L (4.2-5.4) M/uL Hgb 11.7 L (12.0-16.0) g/dL Hct 35.0 L (37-47) % MCV 87.9 (80-100) fL MCH 29.4 (25-34) pg MCHC 33.4 (32-36) g/dL RDW Std Deviation 42.4 (36.4-46.3) fL RDW Coeff of Guerline 13.1 (11.5-14.5) % Plt Count 243 (130-400) K/uL MPV 9.2 (7.4-10.4) fL Immature Gran % (Auto) 0.4 % Neut % (Auto) 84.7 % Lymph % (Auto) 9.0 % [place] % (Auto) 5.8 % Eos % (Auto) 0.0 % Baso % (Auto) 0.1 % Immature Gran # (Auto) 0.05 H (0.00-0.02) K/uL Neut # (Auto) 12.08 H (1.4-6.5) K/uL Lymph # (Auto) 1.28 (1.2-3.4) K/uL [place] # (Auto) 0.83 H (0.11-0.59) K/uL Eos # (Auto) 0.00 (0-0.5) K/uL Baso # (Auto) 0.01 (0-0.2) K/uL PT (9.0-12.0) Seconds INR (0.9-1.1) APTT (21.0-31.0) Seconds PTT Ratio Sodium 136 (136-145) mmol/L Potassium 4.0 D (3.5-5.1) mmol/L Chloride 104 (98-107) mmol/L Carbon Dioxide 27 (21-32) mmol/L Anion Gap 5.0 (3-11) BUN 11 (7-18) mg/dl Creatinine 0.71 (0.6-1.2) mg/dl POC Creatinine (0.6-1.3) mg/dl Est Cr Clr Drug Dosing 135.9 ml/min Est GFR ( Amer) 134.3 Est GFR (Non-Af Amer) 115.9 BUN/Creatinine Ratio 14.8 (10-20) Glucose 126 H (70-99) mg/dl Lactate 1.3 (0.4-2.0) mmol/L Calcium 8.7 (8.5-10.1) mg/dl Total Bilirubin 0.8 (0.2-1) mg/dl AST 38 H (15-37) U/L ALT 61 (12-78) U/L Alkaline Phosphatase 77 (45-117) U/L Total Protein 7.2 (6.4-8.2) gm/dl Albumin 3.3 L (3.4-5.0) gm/dl Globulin 3.9 (2.5-4.0) gm/dl Albumin/Globulin Ratio 0.8 L (0.9-2) Lipase (73-393) U/L TSH (0.300-4.500) uIu/ml Urine Color Urine Appearance (Clear) Urine pH (4.5-7.5) Ur Specific [place] (1.000-1.030) Urine Protein (Negative) Urine Glucose (UA) (Negative) Urine Ketones (Negative) Urine Blood (Negative) Urine Nitrite (Negative) Urine Bilirubin (Negative) Urine Urobilinogen (Negative) Ur Leukocyte Esterase (Negative) Urine WBC (Auto) (0-5) /hpf Urine RBC (Auto) (0-4) /hpf U Hyaline Cast (Auto) (0-5) /lpf U Epithel Cells (Auto) (0-5) /lpf Urine Bacteria (Auto) (Negative) POC Ur Test (NEG) 12/23/19 12/23/19 12/23/19 Range/Units 15:47 15:42 15:42 WBC (4.8-10.8) K/uL RBC (4.2-5.4) M/uL Hgb (12.0-16.0) g/dL Hct (37-47) % MCV (80-100) fL MCH (25-34) pg MCHC (32-36) g/dL RDW Std Deviation (36.4-46.3) fL RDW Coeff of Guerline (11.5-14.5) % Plt Count (130-400) K/uL MPV (7.4-10.4) fL Immature Gran % (Auto) % Neut % (Auto) % Lymph % (Auto) % [place] % (Auto) % Eos % (Auto) % Baso % (Auto) % Immature Gran # (Auto) (0.00-0.02) K/uL Neut # (Auto) (1.4-6.5) K/uL Lymph # (Auto) (1.2-3.4) K/uL [place] # (Auto) (0.11-0.59) K/uL Eos # (Auto) (0-0.5) K/uL Baso # (Auto) (0-0.2) K/uL PT 10.3 (9.0-12.0) Seconds INR 1.0 (0.9-1.1) APTT 25.8 (21.0-31.0) Seconds PTT Ratio 1.0 Sodium 134 L (136-145) mmol/L Potassium 3.4 L (3.5-5.1) mmol/L Chloride 101 (98-107) mmol/L Carbon Dioxide 24 (21-32) mmol/L Anion Gap 10.0 (3-11) BUN 10 (7-18) mg/dl Creatinine 0.80 (0.6-1.2) mg/dl POC Creatinine 0.6 (0.6-1.3) mg/dl Est Cr Clr Drug Dosing 120.7 ml/min Est GFR ( Amer) 116.3 Est GFR (Non-Af Amer) 100.3 BUN/Creatinine Ratio 12.1 (10-20) Glucose 101 H (70-99) mg/dl Lactate (0.4-2.0) mmol/L Calcium 9.2 (8.5-10.1) mg/dl Total Bilirubin 0.6 (0.2-1) mg/dl AST 18 (15-37) U/L ALT 44 (12-78) U/L Alkaline Phosphatase 85 (45-117) U/L Total Protein 8.3 H (6.4-8.2) gm/dl Albumin 4.1 (3.4-5.0) gm/dl Globulin 4.2 H (2.5-4.0) gm/dl Albumin/Globulin Ratio 1.0 (0.9-2) Lipase 49 L (73-393) U/L TSH 1.250 (0.300-4.500) uIu/ml Urine Color Urine Appearance (Clear) Urine pH (4.5-7.5) Ur Specific [place] (1.000-1.030) Urine Protein (Negative) Urine Glucose (UA) (Negative) Urine Ketones (Negative) Urine Blood (Negative) Urine Nitrite (Negative) Urine Bilirubin (Negative) Urine Urobilinogen (Negative) Ur Leukocyte Esterase (Negative) Urine WBC (Auto) (0-5) /hpf Urine RBC (Auto) (0-4) /hpf U Hyaline Cast (Auto) (0-5) /lpf U Epithel Cells (Auto) (0-5) /lpf Urine Bacteria (Auto) (Negative) POC Ur Test (NEG) 02/03/20 02/03/20 02/03/20 Range/Units 15:42 15:42 15:31 WBC 18.41 H (4.8-10.8) K/uL RBC 4.36 (4.2-5.4) M/uL Hgb 13.0 (12.0-16.0) g/dL Hct 36.7 L (37-47) % MCV 84.2 (80-100) fL MCH 29.8 (25-34) pg MCHC 35.4 (32-36) g/dL RDW Std Deviation 39.2 (36.4-46.3) fL RDW Coeff of Guerline 12.9 (11.5-14.5) % Plt Count 303 (130-400) K/uL MPV 8.9 (7.4-10.4) fL Immature Gran % (Auto) 0.3 % Neut % (Auto) 82.2 % Lymph % (Auto) 8.1 % [place] % (Auto) 9.1 % Eos % (Auto) 0.1 % Baso % (Auto) 0.2 % Immature Gran # (Auto) 0.06 H (0.00-0.02) K/uL Neut # (Auto) 15.12 H (1.4-6.5) K/uL Lymph # (Auto) 1.50 (1.2-3.4) K/uL [place] # (Auto) 1.67 H (0.11-0.59) K/uL Eos # (Auto) 0.02 (0-0.5) K/uL Baso # (Auto) 0.04 (0-0.2) K/uL PT (9.0-12.0) Seconds INR (0.9-1.1) APTT (21.0-31.0) Seconds PTT Ratio Sodium (136-145) mmol/L Potassium (3.5-5.1) mmol/L Chloride (98-107) mmol/L Carbon Dioxide (21-32) mmol/L Anion Gap (3-11) BUN (7-18) mg/dl Creatinine (0.6-1.2) mg/dl POC Creatinine (0.6-1.3) mg/dl Est Cr Clr Drug Dosing ml/min Est GFR ( Amer) Est GFR (Non-Af Amer) BUN/Creatinine Ratio (10-20) Glucose (70-99) mg/dl Lactate 2.1 H* (0.4-2.0) mmol/L Calcium (8.5-10.1) mg/dl Total Bilirubin (0.2-1) mg/dl AST (15-37) U/L ALT (12-78) U/L Alkaline Phosphatase (45-117) U/L Total Protein (6.4-8.2) gm/dl Albumin (3.4-5.0) gm/dl Globulin (2.5-4.0) gm/dl Albumin/Globulin Ratio (0.9-2) Lipase (73-393) U/L TSH (0.300-4.500) uIu/ml Urine Color Urine Appearance (Clear) Urine pH (4.5-7.5) Ur Specific [place] (1.000-1.030) Urine Protein (Negative) Urine Glucose (UA) (Negative) Urine Ketones (Negative) Urine Blood (Negative) Urine Nitrite (Negative) Urine Bilirubin (Negative) Urine Urobilinogen (Negative) Ur Leukocyte Esterase (Negative) Urine WBC (Auto) (0-5) /hpf Urine RBC (Auto) (0-4) /hpf U Hyaline Cast (Auto) (0-5) /lpf U Epithel Cells (Auto) (0-5) /lpf Urine Bacteria (Auto) (Negative) POC Ur Test NEG (NEG) 12/23/19 Range/Units 15:31 WBC (4.8-10.8) K/uL RBC (4.2-5.4) M/uL Hgb (12.0-16.0) g/dL Hct (37-47) % MCV (80-100) fL MCH (25-34) pg MCHC (32-36) g/dL RDW Std Deviation (36.4-46.3) fL RDW Coeff of Guerline (11.5-14.5) % Plt Count (130-400) K/uL MPV (7.4-10.4) fL Immature Gran % (Auto) % Neut % (Auto) % Lymph % (Auto) % [place] % (Auto) % Eos % (Auto) % Baso % (Auto) % Immature Gran # (Auto) (0.00-0.02) K/uL Neut # (Auto) (1.4-6.5) K/uL Lymph # (Auto) (1.2-3.4) K/uL [place] # (Auto) (0.11-0.59) K/uL Eos # (Auto) (0-0.5) K/uL Baso # (Auto) (0-0.2) K/uL PT (9.0-12.0) Seconds INR (0.9-1.1) APTT (21.0-31.0) Seconds PTT Ratio Sodium (136-145) mmol/L Potassium (3.5-5.1) mmol/L Chloride (98-107) mmol/L Carbon Dioxide (21-32) mmol/L Anion Gap (3-11) BUN (7-18) mg/dl Creatinine (0.6-1.2) mg/dl POC Creatinine (0.6-1.3) mg/dl Est Cr Clr Drug Dosing ml/min Est GFR ( Amer) Est GFR (Non-Af Amer) BUN/Creatinine Ratio (10-20) Glucose (70-99) mg/dl Lactate (0.4-2.0) mmol/L Calcium (8.5-10.1) mg/dl Total Bilirubin (0.2-1) mg/dl AST (15-37) U/L ALT (12-78) U/L Alkaline Phosphatase (45-117) U/L Total Protein (6.4-8.2) gm/dl Albumin (3.4-5.0) gm/dl Globulin (2.5-4.0) gm/dl Albumin/Globulin Ratio (0.9-2) Lipase (73-393) U/L TSH (0.300-4.500) uIu/ml Urine Color Yellow Urine Appearance Cloudy A (Clear) Urine pH 7.0 (4.5-7.5) Ur Specific [place] 1.011 (1.000-1.030) Urine Protein Negative (Negative) Urine Glucose (UA) Negative (Negative) Urine Ketones Negative (Negative) Urine Blood 3+ H (Negative) Urine Nitrite Negative (Negative) Urine Bilirubin Negative (Negative) Urine Urobilinogen Negative (Negative) Ur Leukocyte Esterase Trace H (Negative) Urine WBC (Auto) 5-10 H (0-5) /hpf Urine RBC (Auto) 5-10 H (0-4) /hpf U Hyaline Cast (Auto) 0 (0-5) /lpf U Epithel Cells (Auto) 20-30 H (0-5) /lpf Urine Bacteria (Auto) Negative (Negative) POC Ur Test (NEG) (1) Acute appendicitis Acute appendicitis type: with generalized peritonitis Appendicitis abscess presence: without abscess Appendicitis gangrene presence: without gangrene Appendicitis perforation presence: unspecified whether perforation present Qualified Code(s): K35.20 - Acute appendicitis with generalized peritonitis, without abscess
--- NOTE | 2019-12-25 09:53 | Discharge Summary ---
Date of Service December 25, 2019 Admission HPI Per Admitting Provider Mary presented to emergency department with 1 day history of abdominal pain. Had a CT scan of abdomen and pelvis which showed a dilated appendix measuring up to 11 mm in diameter with mild periappendiceal fat stranding containing a few appendicoliths. This is consistent with acute appendicitis. No perforation or abscess identified at this time. Principal Diagnosis Acute appendicitis with appendicoliths Discharge Data Allergies Allergy/AdvReac Type Severity Reaction Status Date / Time No Known Allergies Allergy Verified 12/23/19 17:51 Consultations 12/23/19 17:54 Consult General Surgery Stat Procedures Performed Operation Date: 12/23/19 20:00 Actual Procedures p Laparoscopic Appendectomy(Not Applicable) - Georgette Spicer MD Ordered Studies 12/23/19 15:30 CT abd pelvis IV con only Stat Hospital Course (1) Acute appendicitis: Patient was taken to operating room for emergency department for laparoscopic appendectomy possible open by Dr. spicer. Patient found to have ga ngreneous acute appendicitis without indigo perforation or abscess but some pus surrounding appendix. Patient tolerated procedure well and was transferred to recovery then to medical/surgical floor for postoperative care. Diet was advanced to clear liquids and then as tolerated. PO Percocet as needed for pain. Activity as tolerated. Incentive spirometry and SCDS. POD #1 vitals stable, afebrile, only having pain at incision sites but controlled. Tolerated diet. Diet advanced to full liquids for lunch. She was evaluated after lunch. No nausea or vomiting. Pain controlled. She was discharged home on POD # 1 in stable condition with 5 day course of PO Cipro. Total Time Total Time Spent Total Time Spent (In Minutes): 30 Total Time Includes: Examination of the Patient, Discharge Planning and Medication Reconciliation Discharge Plan Discharge Items Patient Disposition: Home - Self-Care Reason For Visit: fever, cramping in lower r abd Discharge Diagnosis: acute grangenous appendicitis Condition on Discharge: Good Activity: Per Instructions section Non-emergency contact: Surgeon Call non-emergency contact if: your symptoms worsen, your pain is not controlled, your pain is worsening, your pain is concerning for you, you have a fever, your temperature is above 101, your wound has increased redness, your wound has increased drainage and your wound pain has increased Follow-up/Referrals: PCP,NO [Primary Care Provider] - Diet: Regular Addtl Attending Provider Instructions: No heavy lifting over 20 pounds for 3 to 4 weeks No strenuous activity until cleared by surgeon however walking and light activity is encouraged daily to prevent blood clots from forming in your legs. You may shower in 3 day(s). Sponge bath and wash hair in meantime. No submerging incisions underwater for 2 weeks (no bathing, swimming, or hot tubs) Keep dressings clean and dry until showering. After showering, remove outer dressings and replace daily. Leave steri strips on incisions for 7 days and then remove. They may fall off on their own that is okay. You will be given prescription for narcotic pain medication. This medication may make you drowsy. It can also cause constipation. Take as directed as needed for pain. You may take extra strength Tylenol/ibuprofen as needed for mild pain. - For example: 650 mg of Tylenol every 6 hours as needed and/or 600 mg of Ibuprofen every 6 hours as needed (take with food) -Alternate ibuprofen with Percocet. If no longer taking Percocet, you may take extra strength Tylenol. For constipation take stool softener (such as OTC Colace daily) and drink plenty of water. Finish entire course of antibiotics as prescribed. Follow-up in surgical office in 2 week(s). Please call office at [phone] to make an appointment. Pending Studies at Discharge: Yes (Appendix pathology. Will be reviewed at follow up visit) Stand-Alone Forms: [facility], Work/School Release (Inpt), Smoking Cessation Medications and DC Order Prescriptions: New oxycodone-acetaminophen [Percocet] 5-325 mg Tablet 1 tab PO Q4H PRN (Reason: Pain) Qty: 18 RF: 0 ciprofloxacin HCl [Cipro] 500 mg tablet 500 mg PO BID Qty: 10 RF: 0 No Action No Known Home Medications RF: 0 Discharge Orders: Discharge Order (Routine); Ordered 12/24/19 Ordered By: Prema Mcdaniel/Other Patient Handouts: Ciprofloxacin tablets, Acetaminophen Oxycodone tablets Admission Data Admit Date/Time: 12/23/19 21:51 Attending Provider: Georgette Spicer Admit Provider: Georgette Spicer Primary Care Provider: PCP,NO Other Providers: Georgette Spicer Other Interventions: Discharge Summary Assessment (RN) Last Done: 12/24/19 14:07 DC Date/Time DO NOT enter until pt leaves facility: 12/24/19 14:30
== END 2019-12-24 14:30 | disposition home or self-care (01) ==
LOC: ED 15:11 → OR 20:19 → 3W 20:19
DX: K35.80 Unspecified acute appendicitis

== ENCOUNTER 2020-10-04 13:02 | Inpatient (IN) ==
[2020-10-04] MEDS ORDERED: OXYTOCIN 30 UNITS/500 ML BAG IV PRN (14:05)
[2020-10-04] MEDS ORDERED: miSOPROStoL 50 MCG TAB PO ONE (14:05)
[2020-10-04] MEDS: LACTATED RINGER'S 1,000 ML IV PRN ×3 (14:16→23:23)
[2020-10-04 14:29] LABS: Hematocrit (blood only) 34.8 % (37-47); Hemoglobin 11.8 g/dL (12.0-16.0); Mean Corpuscular Hemoglobin 28.5 pg (25-34); Mean Corpuscular Hgb Conc 33.9 g/dL (32-36); Mean Corpuscular Volume 84.1 fL (80-100); Mean Platelet Volume 9.1 fL (7.4-10.4); Platelet Count 275 K/uL (130-400); RDW Coefficient of Variation 14.3 % (11.5-14.5); RDW Standard Deviation 43.5 fL (36.4-46.3); Red Blood Count 4.14 M/uL (4.2-5.4); White Blood Count 12.73 K/uL (4.8-10.8)
[2020-10-05] MEDS: LACTATED RINGER'S 1,000 ML IV PRN (02:03)
[2020-10-05] MEDS ORDERED: OXYTOCIN 30 UNITS/500 ML BAG IV PRN (04:11)
[2020-10-05] MEDS ORDERED: ceFAZolin 2000MG 2,000 MG/15 ML SYR IV SCH (06:00)
[2020-10-05] MEDS: LEVOTHYROXINE SODIUM 50 MCG TABLET PO SCH (06:38)
[2020-10-05 07:52] LABS: Basophils # (auto) 0.02 K/uL (0-0.2); Basophils % (auto) 0.2 %; Eosinophils # (auto) 0.05 K/uL (0-0.5); Eosinophils % (auto) 0.5 %; Hematocrit (blood only) 33.9 % (37-47); Hemoglobin 11.3 g/dL (12.0-16.0); Immature Granulocytes # (auto) 0.07 K/uL (0.00-0.02); Immature Granulocytes % (auto) 0.6 %; Lymphocytes # (auto) 2.07 K/uL (1.2-3.4); Lymphocytes % (auto) 18.9 %; Mean Corpuscular Hemoglobin 28.3 pg (25-34); Mean Corpuscular Hgb Conc 33.3 g/dL (32-36); Mean Corpuscular Volume 84.8 fL (80-100); Mean Platelet Volume 9.1 fL (7.4-10.4); Monocytes # (auto) 0.96 K/uL (0.11-0.59); Monocytes % (auto) 8.7 %; Neutrophils # (auto) 7.81 K/uL (1.4-6.5); Neutrophils % (auto) 71.1 %; Platelet Count 259 K/uL (130-400); RDW Coefficient of Variation 14.3 % (11.5-14.5); White Blood Count 10.98 K/uL (4.8-10.8)
[2020-10-05] MEDS: D5W AND LACTATED RINGERS 1,000 ML IV SCH ×2 (07:54→17:07)
--- NOTE | 2020-10-05 08:11 | History & Physical Report ---
Date of Service October 05, 2020 Assessment & Plan (1) Premature rupture of membranes: 30-year-old -0-0-2 at 37 weeks and 5 days of gestation, premature rupture of membranes since yesterday 2 AM. Vital signs stable afebrile Augmentation of labor since 4 AM this morning with Pitocin GBS negative, coronavirus negative heart rate with episodes of decreased variability decreased variability and short lasting variable decelerations and accelerations and moderate variability between. N.p.o. since yesterday morning Plan to start IV D5 LR and continue with lactated Ringer Continue to monitor closely Patient declines epidural for now All questions were answered. Admission and Anticipated Discharge Date Admission Date: October 04, 2020 History of Present Illness Primary Care Provider: NO PCP Patient is a 30-year-old -0-0-2 at 37 weeks and 5 days of gestation who was admitted yesterday afternoon by Dr. Jefferson for premature rupture of membranes at term. She reports leakage of fluid started on October 04 at 2 AM it has been slow leak with trickling and clear. She started having contractions yesterday afternoon when she came to labor and delivery. She her contractions were every 5 minutes and she was expecting to manage. She walked around on the hallways but has not had a change in cervix. Contractions stopped last night. She was started on Pitocin this morning at 4 AM. Now she feels contractions every 3 to 4 minutes and they are getting painful. She denies vaginal bleeding, fever chills, abdominal pain or discomfort. She denies nausea vomiting, headaches, change in her vision or cold symptoms. She reports good movements. Her has been uncomplicated, GBS negative, coronavirus testing negative. Allergies Allergy/AdvReac Type Severity Reaction Status Date / Time No Known Allergies Allergy Verified 10/04/20 13:14 Home Medications Home Medications Medication Instructions Recorded Confirmed Type levothyroxine 50 mcg PO DAILY 10/04/20 10/04/20 History prenat.vits,jarod,gce-oezh-ofmxg 1 tab PO DAILY 10/04/20 10/04/20 History [ Vitamin] Patient History Medical History No pertinent past medical history Surgical History History of appendectomy Hx of cholecystectomy Social History Smoking Status: Never smoker Hx Alcohol Use: No Hx Substance Use: No Preferred Language: Wolof Communication Ability: Effective Immunology Specialist Required: No Beliefs That Will Affect Care: None marital status: Current Living Situation: Spouse Current Living Situation Comment: and two children Other Information That Helps Us Care for You: No Feels Safe at Home: Yes Safety Concerns: Feels Safe At This Time Assistive Devices: None OB History FT in 2010 and 2016 SAUTE CHEF History Denies any history of STDs including chlamydia gonorrhea nor herpes. Review of Systems All systems reviewed & are unremarkable except as noted in HPI & below Physical Exam Constitutional: WD/WN, vitals as above well developed, well nourished and + acute distress (mild with ctxs) Gastrointestinal (Abdomen): normal bowel sounds, soft, nontender, no hepatosplenomegaly (Gravid, nontender between contractions, Aidan 7 pounds.) Bedside ultrasound is done by myself, vertex presentation, placenta left anterior, estimated weight is 3067 g. Genitourinary: normal external appearance OB Exam Abdomen: + vertex Manual OB Exam: + cervical dilation 3 cm, + cervical effacement 30% and 50% and + station (very high, ballotable head) high OB Exam Monitor Tracing: + category I (130's, with areas of decreased variability and then accelertions) Results & Data ([facility]) Vital Signs (Past 12 Hours) Vital Signs Temp Pulse Resp BP 10/05/20 07:04 36.7 C 61 20 120/74 10/05/20 06:17 59 L 118/66 10/05/20 06:00 36.6 C 18 10/05/20 03:51 36.4 C L 56 L 130/67 10/05/20 02:04 36.4 C L 59 L 111/52 L 10/04/20 23:03 36.7 C 56 L 119/57 L 10/04/20 21:00 36.8 C Laboratory Results Lab Results 10/04/20 10/04/20 10/04/20 Range/Units 14:17 14:31 14:31 WBC 12.73 H (4.8-10.8) K/uL RBC 4.14 L (4.2-5.4) M/uL Hgb 11.8 L (12.0-16.0) g/dL Hct 34.8 L (37-47) % MCV 84.1 (80-100) fL MCH 28.5 (25-34) pg MCHC 33.9 (32-36) g/dL RDW Std Deviation 43.5 (36.4-46.3) fL RDW Coeff of Guerline 14.3 (11.5-14.5) % Plt Count 275 (130-400) K/uL MPV 9.1 (7.4-10.4) fL Immature Gran % (Auto) % Neut % (Auto) % Lymph % (Auto) % [place] % (Auto) % Eos % (Auto) % Baso % (Auto) % Neut # (Auto) (1.4-6.5) K/uL Lymph # (Auto) (1.2-3.4) K/uL [place] # (Auto) (0.11-0.59) K/uL Eos # (Auto) (0-0.5) K/uL Baso # (Auto) (0-0.2) K/uL Immature Gran # (Auto) (0.00-0.02) K/uL COVID-19 Eval Order Covid19 IDNow [facility] SARS-CoV-2, RNA, NAAT NEGATIVE (NEGATIVE) 10/05/20 Range/Units 07:40 WBC 10.98 H (4.8-10.8) K/uL RBC 4.00 L (4.2-5.4) M/uL Hgb 11.3 L (12.0-16.0) g/dL Hct 33.9 L (37-47) % MCV 84.8 (80-100) fL MCH 28.3 (25-34) pg MCHC 33.3 (32-36) g/dL RDW Std Deviation 44.0 (36.4-46.3) fL RDW Coeff of Guerline 14.3 (11.5-14.5) % Plt Count 259 (130-400) K/uL MPV 9.1 (7.4-10.4) fL Immature Gran % (Auto) 0.6 % Neut % (Auto) 71.1 % Lymph % (Auto) 18.9 % [place] % (Auto) 8.7 % Eos % (Auto) 0.5 % Baso % (Auto) 0.2 % Neut # (Auto) 7.81 H (1.4-6.5) K/uL Lymph # (Auto) 2.07 (1.2-3.4) K/uL [place] # (Auto) 0.96 H (0.11-0.59) K/uL Eos # (Auto) 0.05 (0-0.5) K/uL Baso # (Auto) 0.02 (0-0.2) K/uL Immature Gran # (Auto) 0.07 H (0.00-0.02) K/uL COVID-19 Eval Order SARS-CoV-2, RNA, NAAT (NEGATIVE) Code Status & VTE Plan VTE Prophylaxis Plan VTE Prophylaxis will be ordered: No
[2020-10-05] MEDS: ceFAZolin 2000MG 2,000 MG/15 ML SYR IV SCH ×2 (08:35→15:07)
--- NOTE | 2020-10-05 09:16 | Obstetrical Progress Note ---
Date of Service October 05, 2020 Assessment & Plan Admission and Anticipated Discharge Date Admission Date: October 04, 2020 Subjective Patient was reevaluated due to decreased variability for FHR VE; 4/ 60%/ -2, bulgingbag, AROM'ed, clear fluid, scalp stimulation, 10 bpm increase in baseline IVF bolus with D5 LR ( 250 cc) started with nasal O2 Variability increased and had multiple acceleration, no decels Will continue to monitor closely Results & Data ([facility]) Vital Signs (Past 12 Hours) Vital Signs Temp Pulse Resp BP Pulse Ox 10/05/20 09:09 69 100 10/05/20 09:04 81 100 10/05/20 08:59 66 98 10/05/20 08:58 36.8 C 63 20 118/65 10/05/20 08:00 60 121/63 10/05/20 07:04 36.7 C 61 20 120/74 10/05/20 06:17 59 L 118/66 10/05/20 06:00 36.6 C 18 10/05/20 03:51 36.4 C L 56 L 130/67 10/05/20 02:04 36.4 C L 59 L 111/52 L 10/04/20 23:03 36.7 C 56 L 119/57 L
--- NOTE | 2020-10-05 13:31 | Obstetrical Progress Note ---
Date of Service October 05, 2020 Assessment & Plan Admission and Anticipated Discharge Date Admission Date: October 04, 2020 Subjective Patient is reevaluated Patient feels contractions painful, 9 out of 10 in intensity. She also feels pressure. heart rate was category 1 with moderate variability and accelerations and Pitocin was started and 11:15 AM. heart rate again lost to variability absent minimal with short lasting variable decelerations and accelerations. Category 2. Vaginal exam, cervix is unchanged, 4 cm/ 60%/ -2 scalp stimulation did not change the heart rate. Discussed the findings with the patient category 2 strip and removed from delivery no cervical change, recommended delivery via . She understands and she wants to think about it and decide. All questions were answered. Results & Data ([facility]) Vital Signs (Past 12 Hours) Vital Signs Temp Pulse Resp BP Pulse Ox 10/05/20 12:59 36.6 C 63 20 108/66 10/05/20 11:59 67 109/65 10/05/20 11:15 65 98 10/05/20 11:10 67 99 10/05/20 11:05 65 98 10/05/20 11:00 66 98 10/05/20 10:59 36.6 C 63 20 118/70 10/05/20 10:55 73 98 10/05/20 10:50 73 99 10/05/20 10:45 64 98 10/05/20 10:40 82 100 10/05/20 10:35 66 98 10/05/20 10:30 69 99 10/05/20 10:25 80 98 10/05/20 10:14 69 99 10/05/20 10:09 65 100 10/05/20 10:04 65 99 10/05/20 09:59 74 121/76 100 10/05/20 09:54 68 100 10/05/20 09:49 82 100 10/05/20 09:44 71 100 10/05/20 09:39 66 100 10/05/20 09:34 67 99 10/05/20 09:29 71 100 10/05/20 09:24 76 100 10/05/20 09:19 65 100 10/05/20 09:14 71 99 10/05/20 09:09 69 100 10/05/20 09:04 81 100 10/05/20 08:59 66 98 10/05/20 08:58 36.8 C 63 20 118/65 10/05/20 08:00 60 121/63 10/05/20 07:04 36.7 C 61 20 120/74 10/05/20 06:17 59 L 118/66 10/05/20 06:00 36.6 C 18 10/05/20 03:51 36.4 C L 56 L 130/67 10/05/20 02:04 36.4 C L 59 L 111/52 L
--- NOTE | 2020-10-05 13:57 | Obstetrical Progress Note ---
Date of Service October 05, 2020 Assessment & Plan Admission and Anticipated Discharge Date Admission Date: October 04, 2020 Subjective Patient is reevaluated. She is crying and signed. She states she could not decide. heart rate is 120s with minimal variability and accelerations and no decelerations. Discussed option of IUPC, scalp electrode to monitor closer or go for Ceserean delivery now Discussed the possible risks of CSection. She sates she likes to think about it more and decide. Results & Data ([facility]) Vital Signs (Past 12 Hours) Vital Signs Temp Pulse Resp BP Pulse Ox 10/05/20 12:59 36.6 C 63 20 108/66 10/05/20 11:59 67 109/65 10/05/20 11:15 65 98 10/05/20 11:10 67 99 10/05/20 11:05 65 98 10/05/20 11:00 66 98 10/05/20 10:59 36.6 C 63 20 118/70 10/05/20 10:55 73 98 10/05/20 10:50 73 99 10/05/20 10:45 64 98 10/05/20 10:40 82 100 10/05/20 10:35 66 98 10/05/20 10:30 69 99 10/05/20 10:25 80 98 10/05/20 10:14 69 99 10/05/20 10:09 65 100 10/05/20 10:04 65 99 10/05/20 09:59 74 121/76 100 10/05/20 09:54 68 100 10/05/20 09:49 82 100 10/05/20 09:44 71 100 10/05/20 09:39 66 100 10/05/20 09:34 67 99 10/05/20 09:29 71 100 10/05/20 09:24 76 100 10/05/20 09:19 65 100 10/05/20 09:14 71 99 10/05/20 09:09 69 100 10/05/20 09:04 81 100 10/05/20 08:59 66 98 10/05/20 08:58 36.8 C 63 20 118/65 10/05/20 08:00 60 121/63 10/05/20 07:04 36.7 C 61 20 120/74 10/05/20 06:17 59 L 118/66 10/05/20 06:00 36.6 C 18 10/05/20 03:51 36.4 C L 56 L 130/67 10/05/20 02:04 36.4 C L 59 L 111/52 L
[2020-10-05] MEDS ORDERED: CITRIC ACID/SODIUM CITRATE 15 ML UDC ONE (14:31)
--- NOTE | 2020-10-05 14:39 | Obstetrical Progress Note ---
Date of Service October 05, 2020 Assessment & Plan Admission and Anticipated Discharge Date Admission Date: October 04, 2020 Subjective Patient decided for Ceserean section Understands the risks of bleeding, infection, injury to surrounding organs ( bowels, bladder, ureter), blood cloths in legs/ lungs, possible need for blood transfusion and signed an informed consent. All questions were answered. Results & Data ([facility]) Vital Signs (Past 12 Hours) Vital Signs Temp Pulse Resp BP Pulse Ox 10/05/20 13:59 61 146/84 H 10/05/20 12:59 36.6 C 63 20 108/66 10/05/20 11:59 67 109/65 10/05/20 11:15 65 98 10/05/20 11:10 67 99 10/05/20 11:05 65 98 10/05/20 11:00 66 98 10/05/20 10:59 36.6 C 63 20 118/70 10/05/20 10:55 73 98 10/05/20 10:50 73 99 10/05/20 10:45 64 98 10/05/20 10:40 82 100 10/05/20 10:35 66 98 10/05/20 10:30 69 99 10/05/20 10:25 80 98 10/05/20 10:14 69 99 10/05/20 10:09 65 100 10/05/20 10:04 65 99 10/05/20 09:59 74 121/76 100 10/05/20 09:54 68 100 10/05/20 09:49 82 100 10/05/20 09:44 71 100 10/05/20 09:39 66 100 10/05/20 09:34 67 99 10/05/20 09:29 71 100 10/05/20 09:24 76 100 10/05/20 09:19 65 100 10/05/20 09:14 71 99 10/05/20 09:09 69 100 10/05/20 09:04 81 100 10/05/20 08:59 66 98 10/05/20 08:58 36.8 C 63 20 118/65 10/05/20 08:00 60 121/63 10/05/20 07:04 36.7 C 61 20 120/74 10/05/20 06:17 59 L 118/66 10/05/20 06:00 36.6 C 18 10/05/20 03:51 36.4 C L 56 L 130/67
[2020-10-05] MEDS ORDERED: CLINDAMYCIN 900 MG in DEXTROSE 5% 50 ML IV ONE ×2 (14:45→23:30)
[2020-10-05] MEDS ORDERED: LACTATED RINGER'S 1,000 ML IV SCH ×3 (14:45→16:15)
[2020-10-05] MEDS ORDERED: MoRPHine SULFATE PF 1 MG/ML 10 ML AMP/VIAL ONE (14:45)
--- NOTE | 2020-10-05 14:50 | Anesthesiology Consultation ---
Date of Service October 05, 2020 Assessment & Plan (1) Encounter for pre-operative examination: Chart Review Chart Review: Acceptable Risk for Surgery History Height/Weight Height: 5 ft 5 in Weight: 99.79 kg Allergies Allergy/AdvReac Type Severity Reaction Status Date / Time No Known Allergies Allergy Verified 10/04/20 13:14 Medications Home Medications Medication Instructions Recorded Confirmed Last Taken levothyroxine 50 mcg PO DAILY 10/04/20 10/04/20 10/04/20 06:15 prenat.vits,jarod,gha-hzph-airnv 1 tab PO DAILY 10/04/20 10/04/20 10/03/20 21:00 [ Vitamin] Active Medications Generic Name Dose Route Start Last Admin Trade Name Freq PRN Reason Stop Dose Admin Lactated Ringer's 1,000 mls @ 125 mls/hr 10/04/20 14:05 10/05/20 07:00 Lr IV 10/06/20 14:04 125 mls/hr .Q8H PRN Infusion L&D Protocol Protocol Oxytocin 30 units in 500 mls @ 10 mls/hr 10/05/20 04:11 10/05/20 14:00 Pitocin IV 10/07/20 04:10 0.6 units/hr .Q24H PRN 10 mls/hr Labor Induction/Augmentation Titration Protocol 0.6 UNITS/HR Cefazolin Sodium 2,000 mg in 15 mls @ 3.75 mls/min 10/05/20 08:00 10/05/20 08:35 Ancef 2000mg IV 10/15/20 07:59 3.75 mls/min Q8H YUE Administration Protocol Dextrose/Lactated Ringer's 1,000 mls @ 125 mls/hr 10/05/20 08:00 10/05/20 09:30 D5w And Lactated Ringers IV 11/04/20 07:59 125 mls/hr .Q8H YUE Infusion Levothyroxine Sodium 50 mcg 10/05/20 06:30 10/05/20 06:38 Levothyroxine Sodium 50 Mcg Tablet PO 11/04/20 06:29 50 mcg DAILYBB YUE Administration Past Medical History Medical History No pertinent past medical history Past Surgical History Surgical History History of appendectomy Hx of cholecystectomy Social History Smoking Status: Never smoker Hx Alcohol Use: No Alcohol type: beer and hard liquor alcohol intake frequency: a few times a month Hx Substance Use: No Physical Exam Vital Signs Last Vital Signs Temp 36.6 C 10/05/20 12:59 Pulse 61 10/05/20 13:59 Resp 20 10/05/20 12:59 BP 146/84 H 10/05/20 13:59 Pulse Ox 98 10/05/20 11:15 Testing Laboratory Results 10/05/20 07:40 10/04 Covid negative
[2020-10-05] MEDS ORDERED: LACTATED RINGER'S 500 ML IV PRN (15:31)
[2020-10-05] MEDS ORDERED: NALOXONE HCL 0.4 MG/1 ML VIAL/CARP IV PRN (15:31)
[2020-10-05] MEDS ORDERED: ePHEDrine sulfate 50 MG/ML AMP IV PRN (15:31)
[2020-10-05] MEDS ORDERED: MoRPHine SULFATE PF 1 MG/ML 10 ML AMP/VIAL INT SPINAL ONE (15:31)
[2020-10-05] MEDS ORDERED: ONDANSETRON INJ 2 MG/ML 2 ML VIAL IV PRN (15:31)
[2020-10-05] MEDS ORDERED: MEPERIDINE HCL 25 MG/ML CARP/VIAL IV PRN (15:31)
[2020-10-05] MEDS ORDERED: NALOXONE HCL 0.08 MG in SYRINGE 1.8 ML IV PRN (15:31)
[2020-10-05] MEDS ORDERED: diphenhydrAMINE 50 MG/ML VIAL IV PRN (15:31)
[2020-10-05] MEDS ORDERED: PROMETHAZINE HCL 12.5 MG in SODIUM CHLORIDE 0.9% 50 ML IV PRN (15:31)
[2020-10-05] MEDS ORDERED: NALOXONE HCL 1 MG in SODIUM CHLORIDE 0.9% 1000ML 1,000 ML IV PRN (15:31)
[2020-10-05] MEDS ORDERED: OXYTOCIN 10 UNITS/ML VIAL ONE (15:40)
[2020-10-05] MEDS ORDERED: ONDANSETRON INJ 2 MG/ML 2 ML VIAL ONE (15:40)
[2020-10-05] MEDS ORDERED: METOCLOPRAMIDE HCL INJ 5 MG/ML 2 ML VIAL ONE (15:40)
[2020-10-05] MEDS ORDERED: ePHEDrine sulfate 50 MG/ML SYR ONE (15:40)
[2020-10-05] MEDS ORDERED: PROPOFOL IV EMULSION 10 MG/ML 20 ML VIAL IV ONE (15:40)
[2020-10-05] MEDS ORDERED: OXYTOCIN 10 UNITS/ML VIAL IM ONE (15:42)
[2020-10-05] MEDS ORDERED: NO NARCOTICS OR SEDATIVES SCH (15:45)
[2020-10-05] MEDS ORDERED: SODIUM CHLORIDE 0.9% 1000ML 1,000 ML IV SCH (15:45)
[2020-10-05] MEDS ORDERED: DC INTRASPINAL MORPHINE SCH (15:45)
[2020-10-05] MEDS ORDERED: SUPERCREAM 0.870% 15 GM JAR EXT PRN (16:12)
[2020-10-05] MEDS ORDERED: MEASLES, MUMPS & RUBELLA VIRUS VIAL SQ ONE (16:12)
[2020-10-05] MEDS ORDERED: DIPHTHERIA/TETANUS/PERTUSSIS 0.5 ML SYR/VIAL IM ONE (16:12)
[2020-10-05] MEDS ORDERED: SENNA 8.6 MG TAB PO PRN (16:12)
[2020-10-05] MEDS ORDERED: BENZOCAINE 20% AER SPR 82.5 GM CAN EXT PRN (16:12)
[2020-10-05] MEDS ORDERED: MAGNESIUM HYDROXIDE SUSP 30 ML UDC PO PRN (16:12)
[2020-10-05] MEDS ORDERED: HYDROCORTISONE ACETATE 25 MG SUPP PR PRN (16:12)
--- NOTE | 2020-10-05 16:18 | Post Operative Brief Note ---
Immediate Post Op Note v1 Date of Surgery October 05, 2020 Pre & Post Diagnosis Operation Date: 10/05/20 15:30 Pre-Op Diagnosis: 1. Premature rupture of membranes at 37 weeks 2. Failure to dilate Post-Op Diagnosis: Same I identified the patient and participated in the time-out.: Yes Procedure Operation Date: 10/05/20 15:30 Actual Procedures p Section in LD with the of a live male child at 1534(Bilateral) - Iman Rosenthal MD Surgeon Iman Rosenthal MD Sales Representative Facility Services Blanca Martinez RN Estimated Blood Loss 700 Findings Consistent with Post-Op Diagnosis Drains Buck Catheter Anesthesia Type Spinal Complications none Disposition Accompanied Patient To Recovery: Yes Disposition: L&D
--- NOTE | 2020-10-05 17:18 | Anesthesiology Progress Note ---
Date of Service October 05, 2020 Anesthesia Post Procedure Vital Signs Vital Signs: Temp Pulse Resp BP Pulse Ox 10/05/20 17:14 70 98 10/05/20 17:09 62 102/51 L 98 10/05/20 17:04 63 98 10/05/20 17:00 20 10/05/20 16:59 75 97 10/05/20 16:58 61 110/56 L 10/05/20 16:54 65 98 10/05/20 16:49 61 97 10/05/20 16:48 62 110/54 L 10/05/20 16:44 68 98 10/05/20 16:39 69 114/54 L 97 10/05/20 16:34 69 99 10/05/20 16:29 66 99 10/05/20 16:28 74 16 114/59 L 10/05/20 16:25 66 93 10/05/20 16:24 60 97 10/05/20 16:19 59 L 100 10/05/20 16:18 36.6 C 63 18 117/58 L 10/05/20 14:59 63 124/69 10/05/20 13:59 61 20 146/84 H 10/05/20 12:59 36.6 C 63 20 108/66 10/05/20 11:59 67 20 109/65 10/05/20 11:15 65 98 10/05/20 11:10 67 99 10/05/20 11:05 65 98 10/05/20 11:00 66 98 10/05/20 10:59 36.6 C 63 20 118/70 10/05/20 10:55 73 98 10/05/20 10:50 73 99 10/05/20 10:45 64 98 10/05/20 10:40 82 100 10/05/20 10:35 66 98 10/05/20 10:30 69 99 10/05/20 10:25 80 98 10/05/20 10:14 69 99 10/05/20 10:09 65 100 10/05/20 10:04 65 99 10/05/20 09:59 74 121/76 100 10/05/20 09:54 68 100 10/05/20 09:49 82 100 10/05/20 09:44 71 100 10/05/20 09:39 66 100 10/05/20 09:34 67 99 10/05/20 09:29 71 100 10/05/20 09:24 76 100 10/05/20 09:19 65 100 10/05/20 09:14 71 99 10/05/20 09:09 69 100 10/05/20 09:04 81 100 10/05/20 08:59 66 98 10/05/20 08:58 36.8 C 63 20 118/65 10/05/20 08:00 60 121/63 10/05/20 07:04 36.7 C 61 20 120/74 10/05/20 06:17 59 L 118/66 10/05/20 06:00 36.6 C 18 10/05/20 03:51 36.4 C L 56 L 130/67 10/05/20 02:04 36.4 C L 59 L 111/52 L 10/04/20 23:03 36.7 C 56 L 119/57 L 10/04/20 21:00 36.8 C 10/04/20 19:03 36.8 C 18 10/04/20 18:59 61 122/70 Pain Intensity Lower Abdomen: Pain Intensity: 8 Transfer of Care Handoff Completed per policy Notes Mental Status: alert / awake / arousable Patient Amnestic to Procedure: Yes Nausea / Vomiting: adequately controlled Pain: adequately controlled Airway Patency, RR, SpO2: stable & adequate BP & HR: stable & adequate Hydration State: stable & adequate Anesthetic Complications: no major complications apparent
[2020-10-05] MEDS: OXYTOCIN 20 UNITS in LACTATED RINGER'S 1,000 ML IV SCH ×2 (17:20→23:52)
[2020-10-05] MEDS: SIMETHICONE 80 MG CHEW PO SCH ×2 (18:25→21:56)
[2020-10-05] MEDS: DOCUSATE SODIUM 100 MG CAP PO SCH (21:56)
[2020-10-05] MEDS: KETOROLAC 30 MG/ML VIAL IV PRN (21:57)
[2020-10-05] MEDS ORDERED: ceFAZolin 2000MG 2,000 MG/15 ML SYR IV ONE (23:00)
--- NOTE | 2020-10-05 23:02 | Operative Report (OR) ---
DATE OF OPERATION: 10/05/2020 PREOPERATIVE DIAGNOSES: The patient is a 30-year-old G3, P2-0-0-2 at 37 weeks and 6 days of gestation, presented to labor and delivery with premature rupture of membranes, prolonged rupture of membranes, arrest of dilatation in active phase of labor, category 2 strip and remote from delivery and occiput posterior position. POSTOPERATIVE DIAGNOSES: The patient is a 30-year-old G3, P2-0-0-2 at 37 weeks and 6 days of gestation, presented to labor and delivery with premature rupture of membranes, prolonged rupture of membranes, arrest of dilatation in active phase of labor, category 2 strip and remote from delivery and occiput posterior position. PROCEDURE: Primary low transverse with Pfannenstiel skin incision. SURGEON: Iman Rosenthal MD SCENIC DESIGNER: Blanca Martinez RN. ESTIMATED BLOOD LOSS: 700. DRAINS: Buck catheter drained 750 mL of clear urine. ANESTHESIA: Spinal. COMPLICATIONS: None. FINDINGS: Baby was a viable male delivered in cephalic presentation with left occiput posterior position at 1534 p.m. Apgars were 8/9, weight was 3320 grams. Normal uterus, fallopian tubes and ovaries. DESCRIPTION OF PROCEDURE: The patient was taken to the operating room where spinal anesthesia was given without difficulty. She was prepared and draped in usual sterile fashion. Pfannenstiel skin incision was made and carried through to the underlying layer of fascia with the Bovie. Fascia was incised in the midline and incision was extended laterally with the help of Bright scissors. Lower aspect of the fascial incision was grasped with 2 Anjum clamps, elevated, underlying rectus muscles were dissected off sharply with Bright scissors. Upper aspect of the fascial incision was then grasped with 2 Anjum clamps, elevated, underlying rectus muscles were dissected off sharply with Bright scissors. Rectus muscles were already . Peritoneum was entered bluntly with fingers. Peritoneal incision was extended superiorly and inferiorly with good visualization of the bladder. Bladder blade was inserted. The vesicouterine ligament was elevated and entered sharply with Metzenbaum scissors. Bladder blade was reinserted. Lower uterine segment was incised in the transverse fashion, incision was extended laterally with the help of fingers. Membranes were ruptured. Clear fluid was obtained. Baby's head was delivered without difficulty. Shoulders were delivered with minimal traction. Mouth and nose were suctioned. He was moving and crying rigorously. Cord was clamped x2 and cut at 1 minute delay. Baby was handed to waiting pediatric team. Cord blood was obtained. Placenta was delivered manually as intact and complete. Uterus was exteriorized, cleared of all clots and debris. Incision was repaired with 0 Vicryl in a running locked fashion and then a second umbricating layer was placed with 0 Vicryl in a running locked fashion. Excellent hemostasis was achieved. Cul-de-sac was irrigated with warm normal saline and suctioned. Normal fallopian tubes, ovaries and serosa were noted. Uterus was returned to the abdomen. The pelvis was irrigated with warm normal saline and suctioned and incision was hemostatic. Parietal peritoneum was reapproximated with 3-0 Vicryl and rectus muscles were reapproximated with the same suture in a running fashion. Good Hemostasis was seen under the fascia and over the rectus muscles. Then the rectus fascia was reapproximated with #1 Vicryl in a running fashion. Subcuticular fat tissue was brought together with 3-0 Vicryl in a running fashion. Skin was closed with 4-0 Monocryl in a subcuticular fashion. The patient tolerated the procedure well. Sponge, lap, needle count was correct x3. She was given 2 grams of cefazolin and 900 mg of clindamycin before surgery. She was taken to recovery room in stable condition. No complications happened and I was present during whole procedure. I attest to the content of the Intraoperative Record and any orders documented therein. Any exceptions are noted below. JIM
[2020-10-06] MEDS: KETOROLAC 30 MG/ML VIAL IV PRN ×2 (03:34→09:22)
[2020-10-06] MEDS ORDERED: CITRIC ACID/SODIUM CITRATE 15 ML UDC PO SCH (06:00)
[2020-10-06] MEDS: LEVOTHYROXINE SODIUM 50 MCG TABLET PO SCH (06:15)
[2020-10-06 06:52] LABS: Basophils # (auto) 0.01 K/uL (0-0.2); Basophils % (auto) 0.1 %; Eosinophils # (auto) 0.06 K/uL (0-0.5); Eosinophils % (auto) 0.5 %; Hematocrit (blood only) 27.3 % (37-47); Hemoglobin 8.9 g/dL (12.0-16.0); Immature Granulocytes # (auto) 0.04 K/uL (0.00-0.02); Immature Granulocytes % (auto) 0.4 %; Lymphocytes # (auto) 1.68 K/uL (1.2-3.4); Lymphocytes % (auto) 14.7 %; Mean Corpuscular Hemoglobin 27.6 pg (25-34); Mean Corpuscular Hgb Conc 32.6 g/dL (32-36); Mean Corpuscular Volume 84.8 fL (80-100); Mean Platelet Volume 9.2 fL (7.4-10.4); Monocytes # (auto) 1.08 K/uL (0.11-0.59); Monocytes % (auto) 9.5 %; Neutrophils # (auto) 8.53 K/uL (1.4-6.5); Neutrophils % (auto) 74.8 %; Platelet Count 227 K/uL (130-400); RDW Standard Deviation 43.3 fL (36.4-46.3); Red Blood Count 3.22 M/uL (4.2-5.4)
[2020-10-06] MEDS: DOCUSATE SODIUM 100 MG CAP PO SCH ×2 (08:08→21:22)
[2020-10-06] MEDS: PRENATAL VITAMIN 1 TAB PO SCH (08:08)
[2020-10-06] MEDS: SIMETHICONE 80 MG CHEW PO SCH ×4 (08:08→21:22)
[2020-10-06] MEDS: FERROUS SULFATE 325 MG TAB PO SCH (08:08)
[2020-10-06] MEDS ORDERED: diphenhydrAMINE Capsule 25 MG CAP PO PRN (09:32)
[2020-10-06] MEDS ORDERED: PROMETHAZINE HCL 25 MG in SODIUM CHLORIDE 0.9% 50 ML IV PRN (09:32)
[2020-10-06] MEDS ORDERED: MEPERIDINE HCL 50 MG/ML CARP IV PRN (09:32)
[2020-10-06] MEDS ORDERED: KETOROLAC 30 MG/ML VIAL IV PRN (09:32)
[2020-10-06] MEDS ORDERED: ONDANSETRON INJ 2 MG/ML 2 ML VIAL IV PRN (09:32)
[2020-10-06] MEDS ORDERED: diphenhydrAMINE 50 MG/ML VIAL IV PRN (09:32)
--- NOTE | 2020-10-06 10:48 | Obstetrical Progress Note ---
Date of Service October 06, 2020 Assessment & Plan (1) delivery delivered: POD #1 pt doing well continue day #1 care Subjective Ambulation: ambulating normally Voiding: no voiding problems Passing Gas:: Yes Diet Tolerance:: clear liquids Lochia:: Small Feeding Type:: breast feeding Review of Systems All systems reviewed & are unremarkable except as noted in HPI & below Physical Exam Constitutional WD/WN, vitals as above well developed and well nourished Eyes PERRL, conjunctivae normal, anicteric sclerae ENMT external ear and nose normal, oropharynx normal Neck trachea midline, no thyromegaly Respiratory normal respiratory effort, lungs clear to auscultation Cardiovascular RRR, no murmur, no edema Chest (Breasts) normal inspection/palpation of breasts Gastrointestinal (Abdomen) normal bowel sounds, soft, nontender, no hepatosplenomegaly Musculoskeletal no cyanosis or clubbing, extremities motor strength 5/5 Skin no rashes, warm and dry + incision (Clean,dry and intact) Neurologic patellar DTR's 2+ bilat, sensation intact Psychiatric A+Ox3, euthymic affect Genitourinary normal external appearance Lymphatic no cervical or axillary lymphadenopathy Results & Data ([facility]) Vital Signs (Past 12 Hours) Vital Signs Temp Pulse Pulse Resp BP Pulse Ox 10/06/20 08:10 20 97 10/06/20 08:00 36.7 C 74 18 116/72 97 10/06/20 06:15 18 98 10/06/20 05:15 16 10/06/20 04:20 18 98 10/06/20 03:20 16 98 10/06/20 02:20 18 98 10/06/20 01:00 16 97 10/06/20 00:00 20 100 10/05/20 23:00 37.2 C 69 18 117/72 100
[2020-10-06] MEDS: oxyCODONE/ACETAMINOPHEN 5mg/325mg TAB PO PRN ×2 (14:30→18:46)
[2020-10-06] MEDS: IBUPROFEN 600 MG TAB PO PRN ×2 (14:30→18:46)
[2020-10-06] MEDS ORDERED: bisacodyL 5 MG TABEC PO SCH (20:00)
[2020-10-07] MEDS: IBUPROFEN 600 MG TAB PO PRN ×2 (02:37→09:20)
[2020-10-07] MEDS: oxyCODONE/ACETAMINOPHEN 5mg/325mg TAB PO PRN ×2 (02:37→09:20)
[2020-10-07] MEDS: LEVOTHYROXINE SODIUM 50 MCG TABLET PO SCH (06:29)
[2020-10-07 07:08] LABS: Hematocrit (blood only) 30.8 % (37-47)
[2020-10-07] MEDS: SIMETHICONE 80 MG CHEW PO SCH ×2 (08:24→12:54)
[2020-10-07] MEDS: DOCUSATE SODIUM 100 MG CAP PO SCH (08:24)
[2020-10-07] MEDS: FERROUS SULFATE 325 MG TAB PO SCH (08:25)
[2020-10-07] MEDS: PRENATAL VITAMIN 1 TAB PO SCH (08:25)
--- NOTE | 2020-10-07 09:26 | Obstetrical Progress Note ---
Date of Service October 07, 2020 Assessment & Plan Admission and Anticipated Discharge Date Admission Date: October 04, 2020 Physical Exam Physical Exam: abdomen soft and non tender incision is clean and dry passing flatus no calf tenderness ambulating well vaginal bleeding scant hgb 10.0 patient requests discharge Results & Data ([facility] [place]) Vital Signs (Past 12 Hours) Vital Signs Temp Pulse Resp BP 10/06/20 23:40 36.6 C 65 16 101/65
[2020-10-07] MEDS ORDERED: bisacodyL 10 MG SUPP PR PRN (16:12)
--- NOTE | 2020-10-08 03:08 | Discharge Summary (DS) ---
The patient was admitted at term with ruptured membranes. She was actually leaking. This was confirmed by rebecca. She was having contractions on her own. Eventually we augmented her with IV Pitocin. However, she had arrest of labor and she had a nonreassuring heart rate. She underwent primary low segment section, it was performed without incident. At the time of discharge, her postoperative hemoglobin was 10.0. She requested early discharge. She was ambulating well, eating well. Incision was clean and dry. Vaginal bleeding was minimal and her pain was controlled with a combination of Percocet and Motrin. She was given scripts for use at home and [facility] JIM
== END 2020-10-07 17:00 | disposition home or self-care (01) | DRG 788 ==
LOC: OPB 13:02 → 4S1 13:03 → 4S2 10-05 20:00